=== PATIENT | female | born 1930 | race Caucasian/White ===

== ENCOUNTER → 2019-02-24 | Outpatient (CLI) | payer MEDICARE, OTHER ==
--- NOTE | 2019-02-24 17:28 | Diagnostic Imaging Report ---
INDICATION: Right wrist pain. FINDINGS: Three views. There are no fractures or dislocation. Advanced degenerative changes are noted along the radiocarpal joint. Also along the first metacarpocarpal joint. No evidence of osteonecrosis. There does appear to be mild widening along the scapholunate joint suggesting intercarpal ligament disruption. There are vascular calcifications. IMPRESSION: 1. No acute fracture. 2. Rather advanced degenerative arthritic disease consistent with osteoarthritis. 3. Mild widening of the scapholunate joint. Dictated by: Dictated on workstation # [id number]
== END ==
LOC: RAD 16:36
PROVIDERS: ATTEND Family Medicine
DX: M19.031 Primary osteoarthritis, right wrist (principal)
CPT/HCPCS: 73110

== ENCOUNTER → 2019-03-29 | Outpatient (CLI) | payer MEDICARE ==
--- NOTE | 2019-03-29 17:37 | Diagnostic Imaging Report ---
INDICATION: Pain, falls. COMPARISON: None available. TECHNIQUE: Six radiographs of the bilateral knees dated March 29, 2019. FINDINGS: Right: No acute fracture or dislocation. Mild medial joint space narrowing. Moderate tricompartmental osteophytosis. Chondrocalcinosis of the medial and lateral menisci. No significant joint effusion. Left: No acute fracture or dislocation. No destructive osseous process. Mild medial and lateral joint space narrowing. Moderate tricompartmental osteophytosis. Chondrocalcinosis of the medial and lateral menisci. No joint effusion. IMPRESSION: 1. No acute osseous abnormality with scattered degenerative changes. 2. 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 Alternatively, this could simply relate to osteoarthritis. Dictated by: Dictated on workstation # [id number]
--- NOTE | 2019-03-29 17:45 | Diagnostic Imaging Report ---
INDICATION: Bilateral hip pain. No known trauma. COMPARISON: None available. TECHNIQUE: AP pelvis with AP and frog-leg lateral views of each hip for a total of five views. FINDINGS: Nonuniform joint space narrowing in both hips is greatest superiorly, and degenerative in nature. Small marginal osteophytes are present. 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 No acetabular retroversion or features of osteonecrosis. Degenerative changes are present of the symphysis pubis as well. SI joints are normal in alignment. Assessment of the sacrum and coccyx is limited due to overlying bowel gas and stool. IMPRESSION: Pxdpxxjk-us-[id number] degenerative arthritis of both hips. Dictated by: Dictated on workstation # [id number]
== END ==
LOC: RAD 15:19
PROVIDERS: ATTEND Family Medicine
DX: M11.262 Other chondrocalcinosis, left knee (principal); M11.261 Other chondrocalcinosis, right knee; M25.762 Osteophyte, left knee; M25.761 Osteophyte, right knee; M16.0 Bilateral primary osteoarthritis of hip; M17.0 Bilateral primary osteoarthritis of knee; R29.6 Repeated falls
CPT/HCPCS: 73523

== ENCOUNTER → 2019-04-14 | Outpatient (CLI) | payer MEDICARE ==
[2019-04-14 15:17] LABS: BASOPHILS % (AUTO) 0 % (0-10); EOSINOPHILS % (AUTO) 0 % (0-10); HEMATOCRIT 41 % (35-52); HEMOGLOBIN 13.1 G/DL (11.5-16.0); LYMPHOCYTES # (AUTO) 0.9 X 10^3 (1.0-4.0); LYMPHOCYTES % (AUTO) 10 % (12-44); MEAN CORPUSCULAR HEMOGLOBIN 29 PG (25-34); MEAN CORPUSCULAR HGB CONC 32 G/DL (32-36); MEAN CORPUSCULAR VOLUME 89 FL (80-99); MEAN PLATELET VOLUME 10.5 FL (7.4-10.4); MONOCYTES # (AUTO) 1.4 X 10^3 (0.0-1.0); MONOCYTES % (AUTO) 14 % (0-12); NEUTROPHILS # (AUTO) 7.5 X 10^3 (1.8-7.8); NEUTROPHILS % (AUTO) 76 % (42-75); PLATELET COUNT 276 10^3/uL (130-400); RED CELL DISTRIBUTION WIDTH 15.8 % (10.0-14.5); WHITE BLOOD COUNT 9.9 10^3/uL (4.3-11.0)
--- NOTE | 2019-04-14 16:03 | Diagnostic Imaging Report ---
INDICATION: Fall with right wrist injury with pain. EXAMINATION: AP, oblique and lateral views of the right wrist are obtained. FINDINGS: There is diffuse demineralization. There is mild ulnar-minus variation with chondrocalcinosis involving triangular fibrocartilaginous complex. There is atherosclerotic calcification. There is narrowing of the first carpometacarpal joint with subchondral sclerosis and marginal spurring. No acute fracture or malalignment is identified. IMPRESSION: Degenerative findings in the wrist without acute osseous abnormality detected. Dictated by: Dictated on workstation # [id number]
--- NOTE | 2019-04-14 16:05 | Diagnostic Imaging Report ---
INDICATION: Fall. Wrist and hand pain. COMPARISON: 02/24/2019. FINDINGS: Three radiographic views of the right hand were obtained and show no evidence of acute fracture or dislocation. There are advanced osteoarthritic changes, greatest involving the distal interphalangeal joint spaces. Xnfvuiwi-ji-udfhegjj osteoarthritic changes of the first carpometacarpal joint space are also noted. Otherwise, joint spaces are maintained. Osseous structures are intact. No unexpected radiopaque foreign bodies are seen. IMPRESSION: 1. No radiographic evidence of acute fracture or dislocation of the right hand. 2. Osteoarthritic changes as described above. Dictated by: Dictated on workstation # [id number]
== END ==
LOC: LAB 14:57
PROVIDERS: ATTEND Family Medicine
DX: S69.91XA Unspecified injury of right wrist, hand and finger(s), initial encounter (principal); M19.041 Primary osteoarthritis, right hand; M19.031 Primary osteoarthritis, right wrist; D64.9 Anemia, unspecified; W19.XXXA Unspecified fall, initial encounter
CPT/HCPCS: 36415; 73110; 73130; 85025

== ENCOUNTER 2019-09-22 13:14 | Inpatient (IN) | payer MEDICARE ==
[~2019-09-22] VITALS: Ht 162.6 cm; Wt 58.5 kg
--- NOTE | 2019-09-22 13:55 | NUR ---
PATIENT ACTS LIKE SHE WANT TO VOMIT G JENNIFER STONER NOTIFIED MEDS ORDERED.
[2019-09-22] MEDS ORDERED: RT-ALBUTEROL/IPRATROPIUM 3 ML (DUONEB) VIAL INH ONE (14:00)
[2019-09-22] MEDS ORDERED: ONDANSETRON 4 MG/2 ML (SDV) Z0FRAN IVP ONE (14:00)
[2019-09-22 14:33] LABS: BASOPHILS % (AUTO) 0 % (0-10); EOSINOPHILS # (AUTO) 0.1 10^3/uL (0.0-0.3); EOSINOPHILS % (AUTO) 1 % (0-10); HEMATOCRIT 43 % (35-52); HEMOGLOBIN 14.2 G/DL (11.5-16.0); LYMPHOCYTES # (AUTO) 0.6 X 10^3 (1.0-4.0); LYMPHOCYTES % (AUTO) 5 % (12-44); MEAN CORPUSCULAR HEMOGLOBIN 29 PG (25-34); MEAN CORPUSCULAR HGB CONC 33 G/DL (32-36); MEAN CORPUSCULAR VOLUME 89 FL (80-99); MEAN PLATELET VOLUME 11.2 FL (7.4-10.4); MONOCYTES # (AUTO) 0.6 X 10^3 (0.0-1.0); MONOCYTES % (AUTO) 5 % (0-12); NEUTROPHILS # (AUTO) 11.2 X 10^3 (1.8-7.8); NEUTROPHILS % (AUTO) 90 % (42-75); PLATELET COUNT 177 10^3/uL (130-400); RED CELL DISTRIBUTION WIDTH 15.1 % (10.0-14.5); WHITE BLOOD COUNT 12.5 10^3/uL (4.3-11.0)
[2019-09-22 14:49] LABS: BUN/CREATININE RATIO 35; CARBON DIOXIDE 20 MMOL/L (21-32); CHLORIDE 109 MMOL/L (98-107); CREATININE SERUM 0.86 MG/DL (0.60-1.30); POTASSIUM 3.9 MMOL/L (3.6-5.0); SODIUM 141 MMOL/L (135-145)
[2019-09-22 14:50] LABS: ALANINE AMINOTRANSFERASE 14 U/L (0-55); ALBUMIN 3.6 GM/DL (3.2-4.5); ALKALINE PHOSPHATASE 62 U/L (40-136); BILIRUBIN,TOTAL 0.4 MG/DL (0.1-1.0); CALCIUM 8.8 MG/DL (8.5-10.1); GFR ESTIMATED > 60; GLUCOSE 134 MG/DL (70-105); TOTAL PROTEIN 6.5 GM/DL (6.4-8.2)
[2019-09-22 15:17] LABS: BAND NEUTROPHILS 9 %; LYMPHOCYTES % (MANUAL) 5 %; MONOCYTES % (MANUAL) 3 %; NEUTROPHILS % (MANUAL) 83 %; RBC MORPH NORMAL
[2019-09-22] MEDS ORDERED: NS IV 1000 ML 1,000 ML IV SCH (15:27)
[2019-09-22] MEDS ORDERED: NS IV 500 ML 500 ML IV ONE (15:27)
[2019-09-22] MEDS ORDERED: VANCOMYCIN INJECTION 1,000 MG in NS (IVPB) 250 ML IV ONE (15:30)
[2019-09-22] MEDS ORDERED: PIPERACILLIN SODIUM/TAZOBACTAM 4.5 GM in NS (IVPB) 100 ML IV ONE (15:30)
--- NOTE | 2019-09-22 15:36 | ED Respiratory ---
General Chief Complaint: General Problems/Pain Stated Complaint: NOT FEELING WELL Nursing Triage Note: TO ED PER EMS FROM RETIREMENT WAS CALLEAD FOR ELEVATED B/P , NAUSEA , BACK PAIN, AND LOW SA02 PER EMS SAO2 PER NURSING WAS 89% PLACED ON 02. EMS ARRIVAL. SA02 90 O2 UP TO 3L PER NC. PATIENT DENIES PAIN ON ADMIT PMH OF DEMENTIA. PER EMS. Source: patient, EMS Exam Limitations: other (Dementia) History of Present Illness Date Seen by Provider: Sep 22, 2019 Time Seen by Provider: 15:22 Initial Comments The patient presents to the ER by EMS from the senior care with chief complaint of cough shortness of breath elevated blood pressure and nausea. She denies any pain although staff reported some back pain. Her SaO2 was 89% and she was placed on O2 which she does not use routinely. Breathing treatment was given. She denies any history of COPD or asthma. She denies any wheezing. She has had productive cough but denies fever or chills. She says she does feel weak for the past day or so. She denies currently any nausea and EMS did not give her any Zofran. Allergies and Home Medications Allergies Coded Allergies: No Known Drug Allergies (Unverified , 09/22/19) Patient Home Medication List Home Medication List Reviewed: Yes Review of Systems Review of Systems Constitutional: No chills, No fever; malaise EENTM: No ear discharge, No ear pain Respiratory: cough; No hemoptysis, No orthopnea; phlegm, short of breath; No wheezing Cardiovascular: No chest pain, No palpitations, No vascular heart diseas Gastrointestinal: No abdominal pain, No constipation, No diarrhea Genitourinary: No discharge, No dysuria Musculoskeletal: No back pain, No joint pain Skin: No pruritus, No rash Psychiatric/Neurological: Denies Headache, Denies Numbness All Other Systems Reviewed Negative Unless Noted: Yes Past Odibitk-Zkhspo-Vggqqe Hx Patient Social History Alcohol Use: Denies Use Recreational Drug Use: No Smoking Status: Unknown if Ever Smoked Recent Foreign Travel: No Contact w/Someone Who Travel: No Recent Infectious Disease Expo: No Seasonal Allergies Seasonal Allergies: No Past Medical History Respiratory: No Cardiac: Yes (CHF) Atrial Fibrillation, Hypertension Hypothyroidsim Psychosocial: Yes Physical Exam Vital Signs - First Documented 09/22/19 13:30 Temp 37.1 Pulse 100 Resp 20 B/P (MAP) 143/100 (114) Pulse Ox 96 O2 Delivery Nasal Cannula O2 Flow Rate 2.00 Capillary Refill : Less Than 3 Seconds Height: '" Weight: lbs. oz. kg; 188.00 BMI Method: General Appearance: WD/WN, mild distress Eyes: Bilateral Eye Normal Inspection, Bilateral Eye PERRL, Bilateral Eye EOMI HEENT: PERRL/EOMI, normal ENT inspection, TMs normal, pharynx normal (Oropharynx mucosa is mildly dry) Neck: non-tender, full range of motion, supple, normal inspection Respiratory: chest non-tender, no accessory muscle use, respiratory distress (Mild respiratory rate 20-24 with oxygen sats around 97% on 4 L.), crackles (Bilateral bases) Cardiovascular: normal peripheral pulses, regular rate, rhythm, no JVD, tachycardia Gastrointestinal: normal bowel sounds, non tender, soft Neurologic/Psychiatric: alert, normal mood/affect, other (oriented to person and place but not time or situation) Skin: normal color, warm/dry Focused Exam Lactate Level 09/22/19 14:20: Lactic Acid Level 1.40 Lactic Acid Level Laboratory Tests Test 09/22/19 14:20 Lactic Acid Level 1.40 MMOL/L (0.50-2.00) Progress/Results/Core Measures Suspected Sepsis Recent Fever Within 48 Hours: No Infection Criteria Present: Suspected New Infection New/Unexplained Altered Menta: No Sepsis Screen: No Definite Risk SIRS Temperature: Pulse: 100 Respiratory Rate: 20 Laboratory Tests 09/22/19 14:20: White Blood Count 12.5H Blood Pressure 143 /100 Mean: 114 09/22/19 14:20: Lactic Acid Level 1.40 Laboratory Tests 09/22/19 14:20: Creatinine 0.86, INR Comment 2.9H, Platelet Count 177, Total Bilirubin 0.4 Results/Orders Lab Results Laboratory Tests Test 09/22/19 14:20 09/22/19 15:44 09/22/19 15:59 Range/Units White Blood Count 12.5 H 4.3-11.0 10^3/uL Red Blood Count 4.87 4.35-5.85 10^6/uL Hemoglobin 14.2 11.5-16.0 G/DL Hematocrit 43 35-52 % Mean Corpuscular Volume 89 80-99 FL Mean Corpuscular Hemoglobin 29 25-34 PG Mean Corpuscular Hemoglobin Concent 33 32-36 G/DL Red Cell Distribution Width 15.1 H 10.0-14.5 % Platelet Count 177 130-400 10^3/uL Mean Platelet Volume 11.2 H 7.4-10.4 FL Neutrophils (%) (Auto) 90 H 42-75 % Lymphocytes (%) (Auto) 5 L 12-44 % Monocytes (%) (Auto) 5 0-12 % Eosinophils (%) (Auto) 1 0-10 % Basophils (%) (Auto) 0 0-10 % Neutrophils # (Auto) 11.2 H 1.8-7.8 X 10^3 Lymphocytes # (Auto) 0.6 L 1.0-4.0 X 10^3 Monocytes # (Auto) 0.6 0.0-1.0 X 10^3 Eosinophils # (Auto) 0.1 0.0-0.3 10^3/uL Basophils # (Auto) 0.0 0.0-0.1 10^3/uL Neutrophils % (Manual) 83 % Lymphocytes % (Manual) 5 % Monocytes % (Manual) 3 % Band Neutrophils 9 % Blood Morphology Comment NORMAL Prothrombin Time 31.7 H 12.2-14.7 SEC INR Comment 2.9 H 0.8-1.4 Activated Partial Thromboplast Time 44 H 24-35 SEC Sodium Level 141 135-145 MMOL/L Potassium Level 3.9 3.6-5.0 MMOL/L Chloride Level 109 H 98-107 MMOL/L Carbon Dioxide Level 20 L 21-32 MMOL/L Anion Gap 12 5-14 MMOL/L Blood Urea Nitrogen 30 H 7-18 MG/DL Creatinine 0.86 0.60-1.30 MG/DL Estimat Glomerular Filtration Rate > 60 BUN/Creatinine Ratio 35 Glucose Level 134 H 70-105 MG/DL Lactic Acid Level 1.40 0.50-2.00 MMOL/L Calcium Level 8.8 8.5-10.1 MG/DL Corrected Calcium 9.1 8.5-10.1 MG/DL Total Bilirubin 0.4 0.1-1.0 MG/DL Aspartate Amino Transf (AST/SGOT) 19 5-34 U/L Alanine Aminotransferase (ALT/SGPT) 14 0-55 U/L Alkaline Phosphatase 62 40-136 U/L Total Protein 6.5 6.4-8.2 GM/DL Albumin 3.6 3.2-4.5 GM/DL Blood Gas Puncture Site RIGHT RADIAL Blood Gas Patient Temperature 36.6 Arterial Blood pH 7.39 7.37-7.43 Arterial Blood Partial Pressure CO2 37 35-45 MMHG Arterial Blood Partial Pressure O2 78 L 79-93 MMHG Arterial Blood HCO3 22 L 23-27 MMOL/L Arterial Blood Total CO2 23.4 21.0-31.0 MMOL/L Arterial Blood Oxygen Saturation 96 94-100 % Arterial Blood Base Excess -2.1 -2.5-2.5 MMOL/L Godwin Test POSITIVE Blood Gas Ventilator Setting NO Blood Gas Inspired Oxygen 3 L Urine Color YELLOW Urine Clarity CLEAR Urine pH 6.0 5-9 Urine Specific [place] >=1.030 1.016-1.022 Urine Protein NEGATIVE NEGATIVE Urine Glucose (UA) NEGATIVE NEGATIVE Urine Ketones NEGATIVE NEGATIVE Urine Nitrite POSITIVE NEGATIVE Urine Bilirubin NEGATIVE NEGATIVE Urine Urobilinogen 0.2 < = 1.0 MG/DL Urine Leukocyte Esterase NEGATIVE NEGATIVE Urine RBC (Auto) NEGATIVE NEGATIVE Urine RBC NONE /HPF Urine WBC 5-10 H /HPF Urine Squamous Epithelial Cells 5-10 /HPF Urine Crystals NONE /LPF Urine Bacteria LARGE H /HPF Urine Casts NONE /LPF Urine Mucus NEGATIVE /LPF Urine Culture Indicated CULTURE PENDING Micro Results Microbiology 09/22/19 Influenza Types A,B Antigen (MONALISA) - Final, Complete My Orders Orders - ROSANGELA OCONNELL Chest 1 View, Ap/Pa Only (09/22/19 15:27) Blood Culture (09/22/19 15:27) Sputum Culture (09/22/19 15:27) Urinalysis (09/22/19 15:27) Urine Culture (09/22/19 15:27) Protime With Inr (09/22/19 15:27) Partial Thromboplastin Time (09/22/19 15:27) Ed Iv/Invasive Line Start (09/22/19 15:27) Ed Iv/Invasive Line Start (09/22/19 15:27) Vital Signs Adult Sepsis Patie Q15M (09/22/19 15:27) O2 (09/22/19 15:27) Remove Rings In Anticipation O (09/22/19 15:27) Lactic Acid Analyzer (09/22/19 15:27) Ns Iv 1000 Ml (Sodium Chloride 0.9%) (09/22/19 15:27) Piperacillin Sodium/Tazobactam (Zosyn Vi (09/22/19 15:30) Vancomycin Injection (Vancomycin Injecti (09/22/19 15:30) Ed Iv/Invasive Line Start (09/22/19 15:27) Ns Iv 500 Ml (Sodium Chloride 0.9%) (09/22/19 15:27) Arterial Blood Gas (09/22/19 15:46) Medications Given in ED Current Medications Medications Dose Ordered Sig/Heladio Route Start Time Stop Time Status Last Admin Dose Admin Ondansetron HCl 4 mg ONCE ONCE IVP 09/22/19 14:00 09/22/19 14:01 DC 09/22/19 13:57 4 MG Piperacillin Sod/ Tazobactam Sod 4.5 gm/Sodium Chloride 100 ml @ 200 mls/hr ONCE ONCE IV 09/22/19 15:30 09/22/19 15:59 DC 09/22/19 16:30 200 MLS/HR Sodium Chloride 500 ml @ 0 mls/hr Q0M ONCE IV 09/22/19 15:27 09/22/19 15:31 DC 09/22/19 16:19 500 MLS/HR Vancomycin HCl 1000 mg/Sodium Chloride 250 ml @ 250 mls/hr ONCE ONCE IV 09/22/19 15:30 09/22/19 16:29 DC 09/22/19 16:21 250 MLS/HR Vital Signs/I&O 09/22/19 09/22/19 13:30 16:43 Temp 37.1 Pulse 100 72 Resp 20 18 B/P (MAP) 143/100 (114) 144/79 (100) Pulse Ox 96 95 O2 Delivery Nasal Cannula Nasal Cannula O2 Flow Rate 2.00 3.00 Capillary Refill : Less Than 3 Seconds Blood Pressure Mean: 114 Progress Note : Time: 15:35 Progress Note Influenza is negative. She has hypoxia and a loose cough as well as adventitious lung sounds after a breathing treatment. She does not have any wheezing so we'll get a chest x-ray put her on broad-spectrum antibiotics and she lives in a senior care and obtain sputum and urine cultures. Septic workup. 1 and a 1/2 L would be 20 mL/kg. Diagnostic Imaging Diagonstic Imaging: Xray Plain Films/CT/US/NM/MRI: chest (1v) Comments [facility]. [place], [place] NAME: AMINA MACK [employer] REC#: [id number] PT STATUS: REG ER : 1930 PHYSICIAN: ROSANGELA OCONNELL MD ADMIT DATE: 09/22/19/ER Draft Date of Exam:09/22/19 CHEST 1 VIEW, AP/PA ONLY INDICATION: Hypertension, nausea, and back pain. Low oxygen saturation.. TECHNIQUE: Single-view chest at 3:49 p.m. CORRELATION STUDY: None. FINDINGS: Heart size is enlarged. Borderline vasculature. Slight asymmetrically elevated right diaphragm. There may be minimal atelectasis versus less likely infiltrate at the right lung base. [place] screw over the left humeral head, likely prior rotator cuff surgery. IMPRESSION: 1. Cardiac enlargement with borderline vasculature. 2. Some right lung volume loss, likely atelectasis with possibility of superimposed infiltrate not excluded. Dictated on workstation # [id number] Dict: 09/22/19 1552 Trans: 09/22/19 1602 [id number] [id number] Interpreted by: ALETA CLEMONS DO Electronically signed by: Reviewed: Reviewed by Me Departure Communication (Admissions) Time/Spoke to Admitting Phy: 17:00 Dr Sanchez: Discussed the case and she reviewed labs and visit with patient. She agrees to accept the patient the floor on broad-spectrum antibiotics. Impression Primary Impression: Pneumonia Qualified Codes: J18.1 - Lobar pneumonia, unspecified organism Additional Impressions: Sepsis Qualified Codes: A41.9 - Sepsis, unspecified organism Hypoxia UTI (urinary tract infection) Qualified Codes: N30.00 - Acute cystitis without hematuria Disposition: ADMITTED INPATIENT Condition: Stable Admissions Decision to Admit Reason: Admit from ER (General) Decision to Admit/Date: Sep 22, 2019 Time/Decision to Admit Time: 17:00 Departure-Patient Inst. Referrals: CARLENE ROGERS DO (PCP/Family) Primary Care Physician ROSANGELA OCONNELL Sep 22, 2019 15:36
[2019-09-22 15:43] LABS: INR 2.9 (0.8-1.4); PROTHROMBIN TIME PATIENT 31.7 SEC (12.2-14.7)
[2019-09-22 15:52] LABS: ABG BASE EXCESS -2.1 MMOL/L (-2.5-2.5); ABG OXYGEN SATURATION 96 % (94-100); ABG PCO2 37 MMHG (35-45); ABG PH 7.39 (7.37-7.43); ABG PO2 78 MMHG (79-93); ABG TCO2 23.4 MMOL/L (21.0-31.0)
[2019-09-22 15:53] LABS: ALLENS TEST POSITIVE; INSPIRED O2 3 L; PATIENT TEMP 36.6; VENTILATOR NO
--- NOTE | 2019-09-22 16:02 | Diagnostic Imaging Report ---
INDICATION: Hypertension, nausea, and back pain. Low oxygen saturation.. TECHNIQUE: Single-view chest at 3:49 p.m. CORRELATION STUDY: None. FINDINGS: Heart size is enlarged. Borderline vasculature. Slight asymmetrically elevated right diaphragm. There may be minimal atelectasis versus less likely infiltrate at the right lung base. [place] screw over the left humeral head, likely prior rotator cuff surgery. IMPRESSION: 1. Cardiac enlargement with borderline vasculature. 2. Some right lung volume loss, likely atelectasis with possibility of superimposed infiltrate not excluded. Dictated by: Dictated on workstation # [id number]
[2019-09-22 16:07] LABS: BILIRUBIN,URINE NEGATIVE (NEGATIVE); CLARITY,URINE CLEAR; COLOR,URINE YELLOW; GLUCOSE, URINE (UA) NEGATIVE (NEGATIVE); KETONES,URINE NEGATIVE (NEGATIVE); LEUKOCYTE ESTERASE ,URINE NEGATIVE (NEGATIVE); NITRITE,URINE POSITIVE (NEGATIVE); PROTEIN,URINE NEGATIVE (NEGATIVE)
[2019-09-22 16:14] LABS: BACTERIA,URINE LARGE /HPF
--- NOTE | 2019-09-22 16:42 | NUR ---
PATIENT 02 GOES DOWN TO 89-90 % WHEN SHE TAKES HER O2 OFF.
[2019-09-22 16:43] VITALS: BP 144/79
[2019-09-22 18:47] VITALS: BP 133/69
--- NOTE | 2019-09-22 18:47 | NUR ---
AMINA MACK admitted to room 408-1, with an admitting diagnosis of pneumonia, on 09/22/19 from ED via wheelchair, accompanied by staff. AMINA MACK introduced to surroundings, call light, bed controls, phone, TV, temperature control, lights, meal times, smoking policy, visitor policy, side rail policy, bathrooms and showers. Patient Rights given to patient in the handbook. AMINA MACK verbalizes understanding that [facility] is not responsible for the loss or damage to any personal effects or valuables that are kept in the patients possession during their hospitalization. The following Patient Care Plans were discussed with the patient: Discharge Planning, pain management, dehydration, and medications. AMINA MACK verbalizes understanding of Interdisciplinary Patient Education. Patient and/or family were informed about the Rapid Response Team and its purpose.
[2019-09-22 19:39] VITALS: BP 166/67
[2019-09-22 20:56] VITALS: BP 166/67
[2019-09-22] MEDS ORDERED: RT-ALBUTEROL/IPRATROPIUM 3 ML (DUONEB) VIAL INH PRN (21:15)
[2019-09-22] MEDS ORDERED: ONDANSETRON 4 MG/2 ML (SDV) Z0FRAN IV PRN (22:00)
[2019-09-22] MEDS ORDERED: ACETAMINOPHEN 500 MG TAB (TYLENOL) PO PRN (22:00)
[2019-09-22] MEDS ORDERED: CEFEPIME INJECTION 2,000 MG in WATER (STERILE) FOR INJECTION 20 ML IV SCH (22:06)
[2019-09-22] MEDS ORDERED: PHARMACY TO DOSE IV SCH (22:15)
[2019-09-22] MEDS: 1/2 NS W/KCL 20 MEQ/L 1,000 ML IV SCH (23:15)
[2019-09-22] MEDS: MIRTAZAPINE 15 MG (REMERON) TAB PO SCH (23:20)
[2019-09-22] MEDS: risperiDONE 0.25 MG (RisperDAL) TAB PO SCH (23:20)
[2019-09-22] MEDS: CARVEDILOL 12.5 MG (COREG) TABLET PO SCH (23:21)
[2019-09-22] MEDS: SERTRALINE 50 MG (ZOLOFT) TABLET PO SCH (23:21)
[2019-09-23] VITALS (8 sets, daily range): BP systolic 102–179; BP diastolic 51–84
--- NOTE | 2019-09-23 01:39 | NUR ---
PT STATES SHE IS VERY ANXIOUS AND NEEDS MEDICATION TO HELP HER CALM DOWN. INFORMED DR. GRIGSBY OF PTS CONDITION AND THE NEED FOR A SITTER. TELEPHONE ORDERS RECEIVED FOR ATIVAN PO 0.5MG Q8HRS PRN.
[2019-09-23] MEDS: LORazepam 0.5 MG (ATIVAN) TABLET PO PRN ×2 (01:44→20:09)
[2019-09-23] MEDS: RT-ALBUTEROL/IPRATROPIUM 3 ML (DUONEB) VIAL INH SCH ×4 (02:02→21:53)
[2019-09-23 06:13] LABS: BASOPHILS % (AUTO) 0 % (0-10); EOSINOPHILS % (AUTO) 0 % (0-10); HEMATOCRIT 36 % (35-52); HEMOGLOBIN 11.4 G/DL (11.5-16.0); LYMPHOCYTES # (AUTO) 1.3 X 10^3 (1.0-4.0); LYMPHOCYTES % (AUTO) 10 % (12-44); MEAN CORPUSCULAR HEMOGLOBIN 29 PG (25-34); MEAN CORPUSCULAR HGB CONC 32 G/DL (32-36); MEAN CORPUSCULAR VOLUME 90 FL (80-99); MONOCYTES # (AUTO) 0.7 X 10^3 (0.0-1.0); MONOCYTES % (AUTO) 5 % (0-12); NEUTROPHILS # (AUTO) 11.8 X 10^3 (1.8-7.8); NEUTROPHILS % (AUTO) 85 % (42-75); PLATELET COUNT 136 10^3/uL (130-400); WHITE BLOOD COUNT 13.9 10^3/uL (4.3-11.0)
[2019-09-23 06:32] LABS: INR 3.9 (0.8-1.4); PROTHROMBIN TIME PATIENT 39.7 SEC (12.2-14.7)
[2019-09-23] MEDS: 1/2 NS W/KCL 20 MEQ/L 1,000 ML IV SCH ×2 (06:54→18:35)
[2019-09-23] MEDS: LEVOTHYROXINE 25 MCG (LEVOTHROID) TAB PO SCH ×2 (06:54→06:56)
[2019-09-23 06:57] LABS: ALANINE AMINOTRANSFERASE 14 U/L (0-55); ALKALINE PHOSPHATASE 50 U/L (40-136); BUN/CREATININE RATIO 28; CALCIUM 7.8 MG/DL (8.5-10.1); CARBON DIOXIDE 19 MMOL/L (21-32); CHLORIDE 112 MMOL/L (98-107); CREATININE SERUM 0.74 MG/DL (0.60-1.30); GFR ESTIMATED > 60; GLUCOSE 89 MG/DL (70-105); POTASSIUM 3.6 MMOL/L (3.6-5.0); SODIUM 140 MMOL/L (135-145); TOTAL PROTEIN 5.1 GM/DL (6.4-8.2)
--- NOTE | 2019-09-23 07:35 | Diagnostic Imaging Report ---
INDICATION: Pneumonia. COMPARISON: 09/22/2019 FINDINGS: Single frontal radiographic view of the chest was obtained and demonstrates stable mild cardiomegaly. Pulmonary vasculature is within normal limits. There is a 2.5 cm nodular opacity within the medial right lung base. Patchy airspace opacities are also noted within the left base partially obscuring the left hemidiaphragm. No pneumothorax is seen on either side. Osseous structures are stable. IMPRESSION: 1. Findings concerning for pulmonary nodule within the medial right lung base. Correlation with CT is recommended. 2. Patchy alveolar opacities of the left base suspicious for pneumonia. Follow-up to resolution is advised. Dictated by: Dictated on workstation # [id number]
[2019-09-23] MEDS: CARVEDILOL 12.5 MG (COREG) TABLET PO SCH ×2 (08:16→20:10)
[2019-09-23] MEDS: risperiDONE 0.25 MG (RisperDAL) TAB PO SCH ×3 (08:16→20:09)
--- NOTE | 2019-09-23 08:36 | History & Physical ---
History of Present Illness History of Present Illness Reason for visit/HPI patient is resident of a residential. Received call from nurse that blood pressure is extremely high. Patient is nauseous. Patient's pulse ox went down. Patient transferred to emergency room showing pneumonia. Patient has dementia and unable to give any history Date of Admission Sep 22, 2019 at 17:00 Time Seen by a Provider: 08:32 I consulted on this patient on 09/23/19 08:32 Attending Physician Don Rogers DO Admitting Physician Don Rogers DO Consult Allergies and Home Medications Allergies Coded Allergies: No Known Drug Allergies (Unverified , 09/22/19) Patient Home Medication List Home Medication List Reviewed: No Past [place]-Nxxiyt-Nbzlur Hx Past Med/Social Hx: Reviewed Nursing Past Med/Soc Hx Patient Social History Employed/Student: retired Alcohol Use: Denies Use Recreational Drug Use: No Smoking Status: Unknown if Ever Smoked Recent Foreign Travel: No Contact w/other who traveled: No Recent Infectious Disease Expo: No Seasonal Allergies Seasonal Allergies: No Past Medical History Cardiac: Atrial Fibrillation, Hypertension Neurological: Dementia Gastrointestinal: Chronic Constipation Endocrine: Hypothyroidsim Psychosocial: Bipolar, Depression Review of Systems Constitutional: weakness EENTM: no symptoms reported Respiratory: no symptoms reported Cardiovascular: other (on Coumadin for atrial fibrillation) Gastrointestinal: no symptoms reported Genitourinary: no symptoms reported Physical Exam Vital Signs Vital Signs - First Documented 09/22/19 13:30 Temp 37.1 Pulse 100 Resp 20 B/P (MAP) 143/100 (114) Pulse Ox 96 O2 Delivery Nasal Cannula O2 Flow Rate 2.00 Capillary Refill : Less Than 3 Seconds Height, Weight, BMI Height: '" Weight: lbs. oz. kg; 22.05 BMI Method: General Appearance: WD/WN, Thin Eyes: Bilateral Eye Normal Inspection HEENT: Normal ENT Inspection Neck: Full Range of Motion, Normal Inspection Respiratory: No Accessory Muscle Use, No Respiratory Distress, Decreased Breath Sounds Cardiovascular: Irregularly Irregular Gastrointestinal: Non Tender, Soft Assessment/Plan Assessment and Plan pneumonia. UTI. Hypoxia. Dementia. Hypothyroid. Atrial fibrillation Admission Diagnosis Admission Status: Inpatient Order (span 2 midnights) Reason for Inpatient Admission: pneumonia. Dementia. Hypertension malignant. Clinical Quality Measures DVT/VTE Risk/Contraindication: Risk Factor Score Per Nursin RFS Level Per Nursing on Admit: 3=High Contraindications-Pharm: Other *list below* DON ROGERS DO Sep 23, 2019 08:35
[2019-09-23 08:45] LABS: MAGNESIUM 1.6 MG/DL (1.6-2.4)
[2019-09-23] MEDS ORDERED: LEVO25TA5 PO (08:55)
[2019-09-23] MEDS ORDERED: CARV25TA PO (08:55)
[2019-09-23] MEDS ORDERED: LACT20SO2 PO (08:55)
[2019-09-23] MEDS ORDERED: POLY17PO6 PO (08:55)
[2019-09-23] MEDS ORDERED: MELO15TA39 PO (08:55)
[2019-09-23] MEDS ORDERED: MIRT7.5T8 PO (08:55)
[2019-09-23] MEDS ORDERED: DOCU-143 PO (08:55)
[2019-09-23] MEDS ORDERED: BISA10SU58 RC (08:55)
[2019-09-23] MEDS ORDERED: LORA10TA7 PO (08:55)
[2019-09-23] MEDS ORDERED: LISI-556 PO (08:55)
[2019-09-23] MEDS ORDERED: MAGN400O7 PO (08:55)
[2019-09-23] MEDS ORDERED: WARF-48 PO (08:56)
[2019-09-23] MEDS ORDERED: SERT50TA9 PO (08:56)
[2019-09-23] MEDS ORDERED: RISP0.5T3 PO (08:56)
[2019-09-23] MEDS ORDERED: TRM50T PO (08:56)
[2019-09-23] MEDS ORDERED: DICL100G31 TOP (08:56)
[2019-09-23] MEDS ORDERED: ACET325T38 PO (08:57)
--- NOTE | 2019-09-23 08:58 | NUR ---
UPDATED MED REC WITH ORDER SUMMARY REPORT FROM [facility] [place], [facility].
[2019-09-23] MEDS ORDERED: risperiDONE 0.25 MG (RisperDAL) TAB PO SCH (09:00)
[2019-09-23] MEDS ORDERED: CARVEDILOL 12.5 MG (COREG) TABLET PO SCH (09:00)
--- NOTE | 2019-09-23 09:12 | NUR ---
VANCOMYCIN DOSING SCR 0.74 (USED 1.0); CRCL ~ 33; VANC 1 GM GIVEN AT 1621 YESTERDAY; VANC 15 MG/KG X 58 KG ~ 1 GM Q24H CHECK TROUGH LEVEL 09/24 1500 BEFORE THE 3RD DOSE HOLD DOSE AND CONTACT PHARMACY IF LEVEL IS GREATER THAN 20
[2019-09-23] MEDS ORDERED: BISACODYL 10 MG SUPP (DULCOLAX) RC PRN (09:15)
[2019-09-23] MEDS ORDERED: MILK OF MAGNESIA 400 MG/5 ML 30 ML UDC PO PRN (09:15)
[2019-09-23] MEDS ORDERED: NON-FORMULARY MEDICATION 1 EA EA (Risperidone 0.5 MG) PO SCH (13:00)
--- NOTE | 2019-09-23 13:53 | NUR ---
CM/SS spoke with the patient to assess for needs upon discharge. Plan: If the facility is able to take the patient back she will return to [facility]. The patient has a POA Alley who lives in [place]. Summary: The patient was lying in bed upon arrival. The patient was willing to talk but was pleasantly confused. The patient stated that she is feeling better today and she could confirm that she lives at [facility]. She did appear to be confused of where she was at and she was unsure if her daughter knew she was in the hospital. CM/SS asked permission to call POA if needed. Patient verbalized that SS could. CM[facility]SS [facility] see if [facility] POA was notified and they reported that she had been notified. Will continue to follow and assess for any needs and plan to inform agency of discharge when able.
[2019-09-23] MEDS: VANCOMYCIN 1 GM/NS 250 ML IVPB IV SCH ×2 (16:02)
[2019-09-23] MEDS ORDERED: warFARin 5 MG (COUMADIN) TAB PO SCH (18:00)
[2019-09-23] MEDS: warFARin 5 MG (COUMADIN) TAB PO SCH (18:11)
[2019-09-23] MEDS: CEFEPIME INJECTION 2,000 MG in WATER (STERILE) FOR INJECTION 20 ML IV SCH (20:09)
[2019-09-23] MEDS: ACETAMINOPHEN 325 MG TABLET PO PRN (20:09)
[2019-09-23] MEDS: LACTULOSE SYRUP 10GM/15ML (ENULOSE) 30ML UDC PO SCH (20:10)
[2019-09-23] MEDS: SERTRALINE 50 MG (ZOLOFT) TABLET PO SCH (20:10)
[2019-09-23] MEDS: MIRTAZAPINE 15 MG (REMERON) TAB PO SCH (20:10)
[2019-09-23] MEDS ORDERED: NON-FORMULARY MEDICATION 1 EA EA (Mirtazapine 7.5 MG) PO SCH (21:00)
[2019-09-23] MEDS ORDERED: NON-FORMULARY MEDICATION 1 EA EA (Carvedilol 25 MG) PO SCH (21:00)
[2019-09-23] MEDS ORDERED: SERTRALINE 50 MG (ZOLOFT) TABLET PO SCH (21:00)
[2019-09-23] MEDS ORDERED: MIRTAZAPINE 15 MG (REMERON) TAB PO SCH (21:00)
[2019-09-24] MEDS: RT-ALBUTEROL/IPRATROPIUM 3 ML (DUONEB) VIAL INH SCH ×2 (01:46→16:09)
[2019-09-24 03:32] VITALS: BP 147/84
[2019-09-24] MEDS: LEVOTHYROXINE 25 MCG (LEVOTHROID) TAB PO SCH (03:56)
[2019-09-24] MEDS: LORazepam 0.5 MG (ATIVAN) TABLET PO PRN (03:56)
[2019-09-24 05:17] LABS: HEMOGLOBIN 11.5 G/DL (11.5-16.0); MEAN PLATELET VOLUME 11.3 FL (7.4-10.4); WHITE BLOOD COUNT 9.1 10^3/uL (4.3-11.0)
[2019-09-24 05:31] LABS: INR 3.1 (0.8-1.4); PROTHROMBIN TIME PATIENT 33.5 SEC (12.2-14.7)
[2019-09-24 05:39] LABS: ALANINE AMINOTRANSFERASE 23 U/L (0-55); ALKALINE PHOSPHATASE 51 U/L (40-136); BILIRUBIN,TOTAL 0.8 MG/DL (0.1-1.0); BUN/CREATININE RATIO 21; CALCIUM 8.2 MG/DL (8.5-10.1); CARBON DIOXIDE 20 MMOL/L (21-32); CHLORIDE 115 MMOL/L (98-107); CREATININE SERUM 0.75 MG/DL (0.60-1.30); GFR ESTIMATED > 60; GLUCOSE 104 MG/DL (70-105); POTASSIUM 3.7 MMOL/L (3.6-5.0); SODIUM 144 MMOL/L (135-145); TOTAL PROTEIN 5.6 GM/DL (6.4-8.2)
[2019-09-24 08:00] VITALS: BP 180/80
[2019-09-24] MEDS ORDERED: PROMETHAZINE/ CODEINE SYRUP 5 ML UDC PO PRN (08:00)
[2019-09-24] MEDS: risperiDONE 0.25 MG (RisperDAL) TAB PO SCH ×3 (08:25→21:27)
[2019-09-24] MEDS: CARVEDILOL 12.5 MG (COREG) TABLET PO SCH ×2 (08:26→21:27)
[2019-09-24] MEDS: LORATADINE (CLARITIN) 10 MG TAB PO SCH (08:26)
[2019-09-24] MEDS: POLYETHYLENE GLYCOL 17 GM (MIRALAX) PACK PO SCH (08:27)
[2019-09-24] MEDS: LACTULOSE SYRUP 10GM/15ML (ENULOSE) 30ML UDC PO SCH ×2 (08:27→20:57)
[2019-09-24] MEDS: DOCUSATE SODIUM 100 MG (COLACE) CAP PO SCH (08:27)
[2019-09-24] MEDS: lisINopril 5 MG (PRINIVIL) TABLET PO SCH (08:29)
--- NOTE | 2019-09-24 08:30 | Progress Note ---
Subjective Time Seen by a Provider: 08:27 Subjective/Events-last exam Patient clinically doing better today. UA culture shows Escherichia coli greater than 100,000. UTI. Chest x-ray yesterday shows pulmonary nodules and needs CAT scan for evaluation Focused Exam Lactate Level 09/22/19 14:20: Lactic Acid Level 1.40 Objective Exam Vital Signs Date Time Temp Pulse Resp B/P (MAP) Pulse Ox O2 Delivery O2 Flow Rate FiO2 09/24/19 03:32 36.1 77 20 147/84 (105) 96 Nasal Cannula 2.00 09/24/19 01:46 96 Nasal Cannula 2.00 09/23/19 23:05 37.2 98 20 168/84 (112) 97 Nasal Cannula 2.00 09/23/19 21:53 94 Nasal Cannula 2.00 09/23/19 20:15 Nasal Cannula 2.00 09/23/19 19:36 37.0 88 20 179/80 (113) 98 Nasal Cannula 2.00 09/23/19 15:24 36.5 79 20 150/78 (102) 96 Nasal Cannula 2.00 09/23/19 13:58 97 Nasal Cannula 2.00 09/23/19 11:10 36.6 72 18 120/59 (79) 95 Nasal Cannula 2.00 09/23/19 10:51 36.8 75 94 28 I & O 09/24/19 07:00 Intake Total 920 ml Output Total 500 ml Balance 420 ml Capillary Refill : Less Than 3 SecondsLess Than 3 Seconds General Appearance: No Apparent Distress, Thin HEENT: Normal ENT Inspection Neck: Full Range of Motion, Normal Inspection Respiratory: No Accessory Muscle Use, No Respiratory Distress, Decreased Breath Sounds Cardiovascular: Regular Rate, Rhythm, No Murmur Gastrointestinal: non tender, soft Results Lab Laboratory Tests 09/24/19 04:45 Laboratory Tests 09/24/19 04:45: White Blood Count 9.1, Red Blood Count 4.01L, Hemoglobin 11.5, Hematocrit 36, Mean Corpuscular Volume 90, Mean Corpuscular Hemoglobin 29, Mean Corpuscular Hemoglobin Concent 32, Red Cell Distribution Width 15.0H, Platelet Count 128L, Mean Platelet Volume 11.3H, Prothrombin Time 33.5H, INR Comment 3.1H, Sodium Level 144, Potassium Level 3.7, Chloride Level 115H, Carbon Dioxide Level 20L, Anion Gap 9, Blood Urea Nitrogen 16, Creatinine 0.75, Estimat Glomerular Filtration Rate > 60, BUN/Creatinine Ratio 21, Glucose Level 104, Calcium Level 8.2L, Corrected Calcium 9.0, Total Bilirubin 0.8, Aspartate Amino Transf (A ST/SGOT) 28, Alanine Aminotransferase (ALT/SGPT) 23, Alkaline Phosphatase 51, Total Protein 5.6L, Albumin 3.0L Microbiology 09/22/19 Blood Culture - Preliminary, Resulted No growth 09/22/19 Urine Culture - Preliminary, Resulted Probable E.coli Probable Enterococcus Species 09/22/19 Influenza Types A,B Antigen (MONALISA) - Final, Complete Assessment/Plan Assessment/Plan Assess & Plan/Chief Complaint Pneumonia. UTI. Hypoxia. Dementia. Pulmonary nodule. Cough Clinical Quality Measures Admission Status Admission Dx pneumonia. UTI. Hypoxia. Dementia. Hypothyroid. Atrial fibrillation DVT/VTE Risk/Contraindication: Risk Factor Score Per Nursin RFS Level Per Nursing on Admit: 3=High Contraindications-Pharm: Other *list below* CARLENE ROGERS DO Sep 24, 2019 08:30
--- NOTE | 2019-09-24 08:33 | Diagnostic Imaging Report ---
INDICATION: Lower respiratory infection. Portable chest 3:53 AM FINDINGS: There is cardiomegaly with vascular congestion. There may be some patchy consolidation at the right medial lung base. IMPRESSION: Mild pulmonary venous hypertension. Questionable patchy consolidation right medial lung base. Dictated by: Dictated on workstation # [id number]
[2019-09-24] MEDS ORDERED: SERTRALINE 50 MG (ZOLOFT) TABLET PO SCH (09:00)
[2019-09-24] MEDS ORDERED: LEVOTHYROXINE 25 MCG (LEVOTHROID) TAB PO SCH (09:00)
[2019-09-24] MEDS: 1/2 NS W/KCL 20 MEQ/L 1,000 ML IV SCH (11:48)
[2019-09-24 12:00] VITALS: BP 183/90
--- NOTE | 2019-09-24 13:24 | NUR ---
"RD ASSESSMENT PMHx: afib; HTN; chronic constipation; dementia PT INTERACTION: Pt was awake and pleasant during nutrition assessment. Note pt has hx of dementia and AMS, per chart review. Pt states current appetite is okay and has been for some time. Note avg PO intake of 56% x1d, per chart review. Pt states no recent issues with n/v/c/d at this time, nor having any difficulty chewing/swallowing food. Note last BM was 1/3 and pt currently on bowel regimen of colace BID; and miralax BID, per chart review. Could not get details on recent wt hx, per patient. Note unable to determine recent wt hx, per chart review. ABNORMAL NUTRITION-RELATED LAB VALUES LOW: Ca 8.2; Pro 5.6; alb 3.0 HIGH: Cl 115 Est. kcal needs: 3867-8427 kcal | 25-30 kcal/kg Est. Pro needs: 50-61 g Pro | 0.8-1.0 g Pro/kg PES STATEMENT: Inadequate oral intake (NI-2.1) related to loss of appetite as evidenced by pt interview | avg PO intake 56% x1d INTERVENTION: Continue with current diet order of Regular diet. Add Ensure Enlive to meals BID for increased kcal intake. Provides 350 kcal and 13 g Pro per serving. Will continue to follow and reassess as pt needs and status change. MONITOR/EVALUATE: PO Intake; Plan of Care; Hydration Status; Weight Status; Lab Values Jordyn James, MS, RD, LD"
--- NOTE | 2019-09-24 14:14 | NUR ---
CM/SS talked with the patients nurse to check on discharge over the weekend. The nurse was unsure but didn't think it would happen yet. The patient has a sitter in her room with her to calm her down with her dementia and anxiety. CM/SS called the patients LUCAJo Ann Hager ([phone]) to touch base and assess needs. This CM/SS wanted POA to have social work number if there were any needs. The POA verbalized being thankful for [facility] and the staff for keeping her updated and having someone sit with her mother. Will continue to follow.
[2019-09-24] MEDS ORDERED: HOLD METFORMIN - RECEIVED CONTRAST 20 ML VIAL IV SCH (14:45)
[2019-09-24] MEDS ORDERED: CATHETER FLUSH 10 ML SYR IV PRN (14:45)
[2019-09-24] MEDS ORDERED: NS 100 ML (IVPB) BAG IV ONE (14:45)
[2019-09-24] MEDS ORDERED: IOHEXOL 350 MG/ML 100 ML (OMNIPAQUE 350) VIAL IV ONE (14:45)
[2019-09-24] MEDS ORDERED: TROUGH ORDER-PHARMACY XX NR (15:00)
[2019-09-24 15:23] VITALS: BP 167/89
--- NOTE | 2019-09-24 17:04 | NUR ---
VANCOMYCIN TROUGH = 5.8 AFTER 2 DOSES CONTINUE CURRENT REGIMEN, REDO TROUGH 09/25 @1500
[2019-09-24] MEDS: VANCOMYCIN 1 GM/NS 250 ML IVPB IV SCH ×2 (17:49)
--- NOTE | 2019-09-24 18:06 | Diagnostic Imaging Report ---
PROCEDURE: CT chest with contrast only. TECHNIQUE: Multiple contiguous axial images were obtained through the chest after administration of intravenous contrast. Auto Exposure Controls were utilized during the CT exam to meet ALARA standards for radiation dose reduction. DATE: September 24, 2019. COMPARISON: Chest radiograph September 24, 2019. INDICATION: 89-year-old female, shortness of breath. History of pneumonia. FINDINGS: There is notable respiratory motion artifact. There is no identified pulmonary nodule. There is no lung mass. There is multifocal patchy airspace consolidation in the right upper lobe, right middle lobe and right lower lobe. There are predominantly linear opacities in the left lower lobe likely predominantly reflecting atelectasis. There is a trace left pleural effusion. There is a trace to small right pleural effusion. There is no pneumothorax. There is no identified central pulmonary embolus. The main pulmonary artery is normal in caliber. The heart is enlarged. There is no pericardial effusion. There are atherosclerotic calcifications. There is no identified abnormally enlarged mediastinal, hilar or axillary lymph node which meets CT size criteria for adenopathy. There is an area of left renal cortical scarring. There is significantly motion limited evaluation of the level of the upper abdomen. There is an anchor in the left humeral head. There is glenohumeral arthritis. There is a compression deformity of L1 with roughly 50% height loss and retropulsion of the posterior superior aspect of the L1 vertebral body beyond the expected posterior vertebral body margin by 4.5 mm. There is superior endplate concavity of T11 which may relate to a prior compression deformity or Schmorl's node. There is no residual fracture line. These are technically age indeterminate without comparison imaging. IMPRESSION: CT chest. 1. Multifocal airspace consolidation predominantly in the right lung which may reflect multifocal pneumonia. Other alveolar consolidative processes are also considered. 2. Predominantly linear opacities in the left lower lobe most likely reflecting atelectasis. 3. Trace left and trace to small right pleural effusions. 4. No identified central pulmonary embolus. Cardiomegaly. 5. Age indeterminate, although most likely chronic, compression deformities of L1 and T11. 6. Significant motion limitations of the study. Dictated by: Dictated on workstation # [id number]
[2019-09-24] MEDS: warFARin 5 MG (COUMADIN) TAB PO SCH (18:13)
[2019-09-24 19:22] VITALS: BP 167/93
[2019-09-24] MEDS: SERTRALINE 50 MG (ZOLOFT) TABLET PO SCH (21:27)
[2019-09-24] MEDS: MIRTAZAPINE 15 MG (REMERON) TAB PO SCH (21:29)
[2019-09-24] MEDS: ACETAMINOPHEN 325 MG TABLET PO PRN (22:10)
[2019-09-24] MEDS: CEFEPIME INJECTION 2,000 MG in WATER (STERILE) FOR INJECTION 20 ML IV SCH (22:11)
[2019-09-24 23:13] VITALS: BP 143/72
[2019-09-25] MEDS: LORazepam 0.5 MG (ATIVAN) TABLET PO PRN ×2 (00:22→21:30)
[2019-09-25] MEDS: RT-ALBUTEROL/IPRATROPIUM 3 ML (DUONEB) VIAL INH SCH ×3 (02:50→14:43)
[2019-09-25 04:15] VITALS: BP 157/82
[2019-09-25 05:47] LABS: MEAN PLATELET VOLUME 11.3 FL (7.4-10.4); RED CELL DISTRIBUTION WIDTH 14.9 % (10.0-14.5); WHITE BLOOD COUNT 8.8 10^3/uL (4.3-11.0)
[2019-09-25 06:07] LABS: ALANINE AMINOTRANSFERASE 17 U/L (0-55); ALBUMIN 3.1 GM/DL (3.2-4.5); ALKALINE PHOSPHATASE 54 U/L (40-136); BILIRUBIN,TOTAL 1.2 MG/DL (0.1-1.0); BUN/CREATININE RATIO 14; CALCIUM 8.5 MG/DL (8.5-10.1); CARBON DIOXIDE 21 MMOL/L (21-32); CHLORIDE 114 MMOL/L (98-107); CREATININE SERUM 0.64 MG/DL (0.60-1.30); GFR ESTIMATED > 60; GLUCOSE 79 MG/DL (70-105); POTASSIUM 3.3 MMOL/L (3.6-5.0); SODIUM 144 MMOL/L (135-145); TOTAL PROTEIN 5.7 GM/DL (6.4-8.2)
[2019-09-25] MEDS: 1/2 NS W/KCL 20 MEQ/L 1,000 ML IV SCH ×2 (06:09→21:38)
[2019-09-25 07:52] VITALS: BP 161/75
[2019-09-25] MEDS: lisINopril 5 MG (PRINIVIL) TABLET PO SCH (09:09)
[2019-09-25] MEDS: DOCUSATE SODIUM 100 MG (COLACE) CAP PO SCH (09:09)
[2019-09-25] MEDS: LEVOTHYROXINE 25 MCG (LEVOTHROID) TAB PO SCH (09:09)
[2019-09-25] MEDS: risperiDONE 0.25 MG (RisperDAL) TAB PO SCH ×3 (09:09→21:30)
[2019-09-25] MEDS: LORATADINE (CLARITIN) 10 MG TAB PO SCH (09:09)
[2019-09-25] MEDS: CARVEDILOL 12.5 MG (COREG) TABLET PO SCH ×2 (09:09→21:30)
[2019-09-25] MEDS: POLYETHYLENE GLYCOL 17 GM (MIRALAX) PACK PO SCH (09:10)
[2019-09-25] MEDS: LACTULOSE SYRUP 10GM/15ML (ENULOSE) 30ML UDC PO SCH ×2 (09:10→21:30)
--- NOTE | 2019-09-25 11:37 | Progress Note - Hospitalist ---
Subjective HPI/CC On Admission Date Seen by Provider: Sep 25, 2019 Time Seen by Provider: 11:28 Subjective/Events-last exam Pt is sleeping during exam. Received ativan last night. Focused Exam Lactate Level 09/22/19 14:20: Lactic Acid Level 1.40 Objective Exam Vital Signs Vital Signs Date Time Temp Pulse Resp B/P (MAP) Pulse Ox O2 Delivery O2 Flow Rate FiO2 09/25/19 08:00 93 Nasal Cannula 2.00 09/25/19 07:52 36.8 85 20 161/75 (103) 09/23/19 10:51 28 Capillary Refill : Less Than 3 SecondsLess Than 3 Seconds General Appearance: No Apparent Distress, Chronically ill Respiratory: Lungs Clear, No Respiratory Distress Cardiovascular: Regular Rate, Rhythm, No Murmur Neurologic/Psychiatric: Alert, Oriented x3 Results/Procedures Lab Laboratory Tests 09/25/19 04:55 Patient resulted labs reviewed. Assessment/Plan Assessment and Plan Assess & Plan/Chief Complaint pneumonia Continue Abx, MRSA screen negative so will DC vanc UTI- e coli and enterococcus- Change Cefepime to Merrem for ESBL Hypoxia- stable on 2lpllm Dementia- was confused yesterday and needed sitter, sleeping comfortably now Hypothyroid on home supplement Atrial fibrillation- rate controlled Clinical Quality Measures DVT/VTE Risk/Contraindication: Risk Factor Score Per Nursin RFS Level Per Nursing on Admit: 3=High Contraindications-Pharm: Other *list below* YANNI GRIGSBY MD Sep 25, 2019 11:37
[2019-09-25 11:43] VITALS: BP 140/71
[2019-09-25] MEDS ORDERED: MEROPENEM 1,000 MG in WATER (STERILE) FOR INJECTION 20 ML IV SCH (11:45)
--- NOTE | 2019-09-25 12:00 | NUR ---
PATIENT DROWSY, REFUSED LUNCH, SITTER REMOVED, PATIENT HAS NOT TRIED TO GET UP BY SELF, BED ALARM SET, TELLE SITTER PUT IN ROOM.
[2019-09-25] MEDS: MEROPENEM 500 MG/SWFI 10 ML IV PUSH IV SCH ×4 (13:12→21:30)
--- NOTE | 2019-09-25 13:15 | Physical Therapy Progress Note ---
Therapy Progress Note Performed chart review and attempted therapy evaluation. Unable to arouse patient. She was given sleeping meds overnight and has apparently not been awake yet today. Will attemp eval at later date. LAWRENCE WOODS PT Sep 25, 2019 13:15
--- NOTE | 2019-09-25 13:55 | NUR ---
INR 3.1, INSTRUCTED BY DR GRIGSBY TO GIVE EVENING DOSE OF COUMADIN TODAY AND ORDER INR IN AM
[2019-09-25] MEDS ORDERED: TROUGH ORDER-PHARMACY XX NR (15:00)
[2019-09-25 15:21] VITALS: BP 146/72
[2019-09-25] MEDS: warFARin 5 MG (COUMADIN) TAB PO SCH (17:19)
--- NOTE | 2019-09-25 18:00 | NUR ---
AWAKE, ORIENTED TIMES 2, ATE 100 PERCENT DINER, WALKED TO BATHROOM TO VOID, COOPERATIVE, O2 ON PER NC AT 2 LITERS, BED ALARM ON.
[2019-09-25 19:09] VITALS: BP 149/82
[2019-09-25] MEDS: MIRTAZAPINE 15 MG (REMERON) TAB PO SCH (21:31)
[2019-09-25] MEDS: SERTRALINE 50 MG (ZOLOFT) TABLET PO SCH (21:31)
--- NOTE | 2019-09-25 23:00 | NUR ---
Received report from Esther Larson RN. Agreed with previous assessment. Will assume patient care.
[2019-09-25 23:55] VITALS: BP 162/99
[2019-09-26 03:20] VITALS: BP 151/84
[2019-09-26] MEDS: RT-ALBUTEROL/IPRATROPIUM 3 ML (DUONEB) VIAL INH SCH ×5 (03:44→18:04)
[2019-09-26] MEDS: MEROPENEM 500 MG/SWFI 10 ML IV PUSH IV SCH ×2 (04:34)
[2019-09-26 05:24] LABS: INR 1.3 (0.8-1.4)
[2019-09-26] MEDS: LEVOTHYROXINE 25 MCG (LEVOTHROID) TAB PO SCH (06:25)
[2019-09-26 08:00] VITALS: BP 168/97
[2019-09-26] MEDS: lisINopril 5 MG (PRINIVIL) TABLET PO SCH (08:35)
[2019-09-26] MEDS: DOCUSATE SODIUM 100 MG (COLACE) CAP PO SCH (08:35)
[2019-09-26] MEDS: LORATADINE (CLARITIN) 10 MG TAB PO SCH (08:35)
[2019-09-26] MEDS: CARVEDILOL 12.5 MG (COREG) TABLET PO SCH ×2 (08:35→21:55)
[2019-09-26] MEDS: POLYETHYLENE GLYCOL 17 GM (MIRALAX) PACK PO SCH (08:38)
[2019-09-26] MEDS: LACTULOSE SYRUP 10GM/15ML (ENULOSE) 30ML UDC PO SCH ×2 (08:38→21:55)
[2019-09-26] MEDS: risperiDONE 0.25 MG (RisperDAL) TAB PO SCH ×3 (09:03→21:55)
[2019-09-26] MEDS ORDERED: LEVOFLOXACIN 750 MG TAB (LEVAQUIN) PO NR (11:11)
--- NOTE | 2019-09-26 11:37 | Progress Note - Hospitalist ---
Subjective HPI/CC On Admission Date Seen by Provider: Sep 26, 2019 Time Seen by Provider: 11:32 Subjective/Events-last exam Pt remains somnolent. Discussed with RN and lost IV. Had been up and confused but resting currently. Objective Exam Vital Signs Vital Signs Date Time Temp Pulse Resp B/P (MAP) Pulse Ox O2 Delivery O2 Flow Rate FiO2 09/26/19 08:00 36.4 89 24 168/97 (120) 96 Nasal Cannula 2.00 09/23/19 10:51 28 Capillary Refill : Less Than 3 SecondsLess Than 3 Seconds General Appearance: No Apparent Distress, Chronically ill Respiratory: Lungs Clear, No Respiratory Distress Cardiovascular: Regular Rate, Rhythm, No Murmur Results/Procedures Lab Patient resulted labs reviewed. Assessment/Plan Assessment and Plan Assess & Plan/Chief Complaint pneumonia- On Merrem, will switch to Levaquin as should cover urine and PNA UTI- e coli and enterococcus- Switch to Levaquin as she lost her IV and will be in preparation for DC tomorrow Hypoxia- stable on 2lpm Dementia- intermittent confusion, likely worsened by being in hospital, sleeping comfortably now Hypothyroid on home supplement Atrial fibrillation- rate controlled Clinical Quality Measures DVT/VTE Risk/Contraindication: Risk Factor Score Per Nursin RFS Level Per Nursing on Admit: 3=High Contraindications-Pharm: Other *list below* YANNI GRIGSBY MD Sep 26, 2019 11:37
[2019-09-26 12:00] VITALS: BP 171/77
[2019-09-26 15:40] VITALS: BP 155/73
[2019-09-26] MEDS: warFARin 5 MG (COUMADIN) TAB PO SCH (17:54)
[2019-09-26] MEDS: LORazepam 0.5 MG (ATIVAN) TABLET PO PRN (18:48)
[2019-09-26 19:57] VITALS: BP 163/90
[2019-09-26] MEDS: SERTRALINE 50 MG (ZOLOFT) TABLET PO SCH (21:54)
[2019-09-26] MEDS: MIRTAZAPINE 15 MG (REMERON) TAB PO SCH (21:54)
[2019-09-26 23:45] VITALS: BP 161/83
[2019-09-27] MEDS: RT-ALBUTEROL/IPRATROPIUM 3 ML (DUONEB) VIAL INH SCH ×4 (03:04→21:08)
[2019-09-27 03:58] VITALS: BP 171/95
[2019-09-27] MEDS: LEVOTHYROXINE 25 MCG (LEVOTHROID) TAB PO SCH (06:27)
[2019-09-27 08:00] VITALS: BP 147/69
--- NOTE | 2019-09-27 08:15 | Progress Note ---
Subjective Time Seen by a Provider: 08:12 Subjective/Events-last exam Pneumonia. Hypoxia. UTI. Dementia. Atrial fibrillation. Patient needing by herself this morning. Patient has confusion. INR yesterday 1.3. Patient has hypertension Objective Exam Vital Signs Date Time Temp Pulse Resp B/P (MAP) Pulse Ox O2 Delivery O2 Flow Rate FiO2 09/27/19 03:58 36.8 97 22 171/95 (120) 97 Nasal Cannula 2.00 09/27/19 03:04 97 Nasal Cannula 2.00 09/26/19 23:45 36.6 90 8 161/83 (109) 94 Nasal Cannula 2.00 09/26/19 20:10 94 Nasal Cannula 2.00 09/26/19 19:57 36.0 92 18 163/90 (114) 94 Nasal Cannula 2.00 09/26/19 18:05 97 Nasal Cannula 2.00 09/26/19 15:45 97 Nasal Cannula 2.00 09/26/19 15:40 36.9 93 22 155/73 (100) 97 Nasal Cannula 2.00 09/26/19 12:00 36.5 86 22 171/77 (108) 96 Nasal Cannula 2.00 I & O 09/27/19 07:00 Intake Total 1510 ml Output Total 2100 ml Balance -590 ml Capillary Refill : Less Than 3 SecondsLess Than 3 Seconds General Appearance: No Apparent Distress, Thin HEENT: Normal ENT Inspection Neck: Full Range of Motion, Normal Inspection Respiratory: No Accessory Muscle Use, No Respiratory Distress, Decreased Breath Sounds Cardiovascular: Irregularly Irregular Gastrointestinal: non tender, soft Results Lab Microbiology 09/23/19 MRSA Screen - Final, Complete MRSA not isolated 09/22/19 Blood Culture - Preliminary, Resulted No growth 09/22/19 Urine Culture - Final, Complete Escherichia coli Enterococcus faecalis See Comments Assessment/Plan Assessment/Plan Assess & Plan/Chief Complaint Pneumonia. UTI. Hypoxia. Dementia. Pulmonary nodule. Cough. . 09/27/19. Pneumonia. UTI. Hypoxia. Dementia. Pulmonary nodule. Cough. Hypertension Clinical Quality Measures Admission Status Admission Dx pneumonia. UTI. Hypoxia. Dementia. Hypothyroid. Atrial fibrillation DVT/VTE Risk/Contraindication: Risk Factor Score Per Nursin RFS Level Per Nursing on Admit: 3=High Contraindications-Pharm: Other *list below* CARLENE ROGERS DO Sep 27, 2019 08:15
--- NOTE | 2019-09-27 08:53 | NUR ---
Pt states she does not know why she is in the hospital or what to expect, states she is trusting God to guide and help her. The pt is Jewish and shared that her prayers have been for help and peace. She welcomed me to pray with her.
[2019-09-27 09:00] LABS: INR 1.5 (0.8-1.4); PROTHROMBIN TIME PATIENT 19.2 SEC (12.2-14.7)
[2019-09-27] MEDS: CARVEDILOL 12.5 MG (COREG) TABLET PO SCH ×2 (09:22→20:46)
[2019-09-27] MEDS: DOCUSATE SODIUM 100 MG (COLACE) CAP PO SCH (09:22)
[2019-09-27] MEDS: LACTULOSE SYRUP 10GM/15ML (ENULOSE) 30ML UDC PO SCH ×2 (09:22→20:47)
[2019-09-27] MEDS: lisINopril 10 MG (PRINIVIL) TABLET PO SCH (09:22)
[2019-09-27] MEDS: LORATADINE (CLARITIN) 10 MG TAB PO SCH (09:22)
[2019-09-27] MEDS: risperiDONE 0.25 MG (RisperDAL) TAB PO SCH ×3 (09:22→21:53)
--- NOTE | 2019-09-27 10:03 | Physical Therapy Evaluation ---
PT Evaluation-General Medical Diagnosis Admission Date Sep 22, 2019 at 17:00 Medical Diagnosis: pneumonia Onset Date: Sep 22, 2019 Therapy Diagnosis Therapy Diagnosis: debility Precautions Precautions/Isolations: Contact Isolation, Fall Prevention Weight Bear Status Right Lower Extremity: Right Weight Bearing/Tolerated Left Lower Extremity: Left Weight Bearing/Tolerated Referral Physician: Daniel Reason for Referral: Evaluation/Treatment Medical History Pertinent Medical History: Atrial Fib, Dementia, HTN Current History ER with pneumonia Reviewed History: Yes Social History Home: Correction Prior Prior Level of Function SCALE: Activities may be completed with or without assistive devices. 1-Phznrjfsls-vgtijab completes the activity by him/herself with no assistance from a helper. 5-Set-up or Clean-up Assistance-helper sets up or cleans up; patient completes activity. [place] assists only prior to or following the activity. 4-Supervision or Touching Assistance-helper provides verbal cues and/or touching/steadying and/or contact guard assistance as patient completes activity. Assistance may be provided throughout the activity or intermittently. 3-Partial/Moderate Assistance-helper does LESS THAN HALF the effort. [place] lifts, holds or supports trunk or limbs, but provides less than half the effort. 2-Substantial/Maximal Assistance-helper does MORE THAN HALF the effort. [place] lifts or holds trunk or limbs and provides more than half the effort. 9-Xgwhxlebg-ymbjwr does ALL the effort. Patient does none of the effort to complete the activity. Or, the assistance of 2 or more helpers is required for the patient to complete the activity. If activity was not attempted, code reason: 7-Patient Refused. 9-Not Applicable-not attempted and the patient did not perform the activity before the current illness, exacerbation or injury. 10-Not Attempted due to Environmental Limitations-(lack of equipment, weather restraints, etc.). 88-Not Attempted due to Medical Conditions or Safety Concerns. Bed Mobility: 4 Transfers (B,C,W/C): 4 Gait: 4 Indoor Mobility (Ambulation): Needed Some Help Prior Devices Use: Walker PT Evaluation-Current Subjective Patient agrees to PT. Noted dementia. Objective Patient Orientation: Confused ROM/Strength ROM Lower Extremities bilateral LE WFL Strength Lower Extremities 3+/5 grossly bilateral LE Integumentary/Posture Integumentary refer to nursing notes Bladder Incontinence: Yes Posture WFL Neuromuscular (Tone, Coordination, Reflexes) grossly intact Sensory Vision: Functional Hearing: Functional Sensation Right Lower Extremit: Intact Sensation Left Lower Extremity: Intact Transfers Roll Left to Right (QC): 5 Sit to Lying (QC): 5 Lying to Sitting/Side of Bed(Q: 5 Sit to Stand (QC): 4 Chair/Ynv-hj-Bckez Xfer(QC): 4 Gait Does the Patient Walk?: Yes Mode of Locomotion: Walk Anticipated Mode of Locomotion: Walk Walk 10 feet (QC): 4 Walk 50 ft with 2 Turns(QC): 4 Walk 150 ft (QC): 4 Distance: 300' Gait Assistive Device: FWW Comments/Gait Description NBOS/functional gait sequence Balance Sitting Static: Normal Sitting Dynamic: Normal Standing Static: Fair Standing Dynamic: Fair Assessment/Needs 89 y.o. female, will benefit from short term skilled PT to address functional strength and mobility to improve current LOF to safely return to NH at maximum LOF. Rehab Potential: Fair PT Snorkelling Instructor Goals Senior Living Goals PT Senior Living Goals Time Frame: Oct 09, 2019 Roll Left & Right (QC): 5 Sit to Lying (QC): 5 Lying-Sitting on Side/Bed(QC): 5 Sit to Stand (QC): 5 Chair/Sqj-yg-Pzxpw Xfer(QC): 5 Toilet Transfer (QC): 5 Does the Patient Walk: Yes Walk 10 feet (QC): 5 Walk 50ft with 2 Turns (QC): 5 Walk 150 ft (QC): 5 PT Plan Problem List Problem List: Activity Tolerance, Safety, Balance, Gait Treatment/Plan Treatment Plan: Continue Plan of Care Treatment Plan: Bed Mobility, Education, Functional Activity Shravan, Functional Strength, Gait, Safety, Therapeutic Exercise, Transfers Treatment Duration: Oct 09, 2019 Frequency: 6 times per week Estimated Hrs Per Day: .25 hour per day Patient and/or Family Agrees t: Yes Time/GCodes Time In: 941 Time Out: 953 Total Billed Treatment Time: 12 Total Billed Treatment 1 visit EVLowC 12 min KATHY JOHN PT Sep 27, 2019 10:03
--- NOTE | 2019-09-27 10:59 | NUR ---
PALLIATIVE CARE RN in to see patient. She is pleasantly confused knowing when asked the she is "right here" and the year is 1974. What little I did see of her mentation it appears that she is not quite ready for hospice. She is walking with CGA and is eating well. No current needs at this time.
[2019-09-27] MEDS: POLYETHYLENE GLYCOL 17 GM (MIRALAX) PACK PO SCH (11:07)
--- NOTE | 2019-09-27 11:24 | Occupational Therapy Eval ---
OT Evaluation-General/PLF Medical Diagnosis Admission Date Sep 22, 2019 at 17:00 Medical Diagnosis: pneumonia Onset Date: Sep 22, 2019 Therapy Diagnosis Therapy Diagnosis: Decreased ADL function Precautions Precautions/Isolations: Contact Isolation, Fall Prevention, Standard Precautions Safety Interventions: Bed Exit Alarm Weight Bear Status Weight Bearing Restriction: Weight Bearing/Tolerated Referral Physician: Daniel Referral Reason: Activity Tolerance, Self Care, Evaluation/Treatment, Strengthening/ROM Medical History Pertinent Medical History: Atrial Fib, Dementia, HTN Additional Medical History dementia, a fib, HTN, hypothyroidism, bipolar/ depression. Current History Pt lives within half-way, dx of pneumonia; admitted with increased BP and decreased 02 Reviewed History: Yes Social History Home: [facility] Entry Into Home: Level Entry ADL-Prior Level of Function SCALE: Activities may be completed with or without assistive devices. 4-Koynkfuaiw-neklpzj completes the activity by him/herself with no assistance from a helper. 5-Set-up or Clean-up Assistance-helper sets up or cleans up; patient completes activity. [place] assists only prior to or following the activity. 4-Supervision or Touching Assistance-helper provides verbal cues and/or touching/steadying and/or contact guard assistance as patient completes activity. Assistance may be provided throughout the activity or intermittently. 3-Partial/Moderate Assistance-helper does LESS THAN HALF the effort. [place] lifts, holds or supports trunk or limbs, but provides less than half the effort. 2-Substantial/Maximal Assistance-helper does MORE THAN HALF the effort. [place] lifts or holds trunk or limbs and provides more than half the effort. 5-Iauukiiyw-syfits does ALL the effort. Patient does none of the effort to complete the activity. Or, the assistance of 2 or more helpers is required for the patient to complete the activity. If activity was not attempted, code reason: 7-Patient Refused. 9-Not Applicable-not attempted and the patient did not perform the activity before the current illness, exacerbation or injury. 10-Not Attempted due to Environmental Limitations-(lack of equipment, weather restraints, etc.). 88-Not Attempted due to Medical Conditions or Safety Concerns. ADL PLOF Comments Pt states she is able to complete all ADLs with FWW use. Pt poor historian, states she lives with her familly and her mother said she needed to come to hospital Self Care: Unknown Functional Cognition: Needed Some Help Occupation: retired Drive Self: No OT Current Status Subjective Pt seen in recliner chair, agreeable to OT kinza. Pt states no pain. Pt oriented to person, states she doesn't know what city or the year, states her mother said she needed to come to hospital and states she lives with her mother. Mental Status/Objective Patient Orientation: Person Current Hearing Aids: No Dentures/Partials: No Hand Dominance: Right Upper Extremity ROM WFL BUE Upper Extremity Coordination WFL finger opposition Upper Extremity Sensation WFL BUE Upper Extremity Strength Impaired BUE, able to reach above head. ADL-Treatment Eating (QC): 6 (brings water to mouth and drinks) Oral Hygiene (QC): 7 Shower/Bathe Self (QC): 7 Upper Body Dressing (QC): 7 Lower Body Dressing (QC): 7 On/Off Footwear (QC): 6 (Completes edge of chair.) Toileting Hygiene (QC): 7 Other Treatments Pt educated on OT role. Pt poor historian, states she is 42, has 2 children, just came from school and doesn't need to take a bath/ wipe up. 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 Pt reoriented to hospital and date/ time. Pt educated on pneumonia dx, ~2 min later educated once more and pt states, "Oh I do?" Pt completes UE movement and sit to stand to FWW with CGA. Pt denies bathroom need. Returns to chair and doffs/ dons socks. Pt educated on use of call light for nursing or to get up, pt nods. Pt left in recliner chair, all needs met, call light in reach, chair alarm on. Per charts, pt lives in half-way and based on sit to stand and sock don/ doffing pt able to complete daily tasks with SUP and cues. Education OT Patient Education: Correct positioning, Disease process, Progress toward Goal/Update tx plan, Purpose of tx/functional activities Teaching Recipient: Patient Teaching Methods: Demonstration, Discussion Response to Teaching: Verbalize Understanding, Return Demonstration, Reinforcement Needed OT Superintendent Sanitation Goals Superintendent Sanitation Goals 1=Demonstrate adherence to instructed precautions during ADL tasks. 2=Patient will verbalize/demonstrate understanding of assistive devices/modifications for ADL. 3=Patient will improve strength/tolerance for activity to enable patient to perform ADL's. OT Education/Plan Problem List/Assessment Assessment: No Skilled OT Needs ID'd Discharge Recommendations Plan/Recommendations: Discharge/Goals Met (pt at prior level) Treatment Plan/Plan of Care Treatment,Training & Education: Yes Patient would benefit from OT for education, treatment and training to promote independence in ADL's, mobility, safety and/or upper extremity function for ADL's. Plan of Care: OTHER (eval only) Treatment Duration: Sep 27, 2019 Frequency: 1 time per week (eval only) Rehab Potential: Fair Time/GCodes Start Time: 10:34 Stop Time: 10:47 Total Time Billed (hr/min): 13 Billed Treatment Time 1, EVL (13) ELADIO FRANCOIS OTR Sep 27, 2019 11:24
[2019-09-27 12:00] VITALS: BP 141/79
--- NOTE | 2019-09-27 14:00 | Physician Query Clarification ---
PQ-Uncertain Diagnosis Admission/Discharge Admission Date: Sep 22, 2019 at 17:00 Discharge Date: The medical record reflects the following clinical scenario: History/Risk Factors: Pneumonia, UTI Clinical Findings: T37.1, P 100, R 20, WBC 13.9, Lactic 1.40, BP 143/100, SOB, nausea, SaO2 89%, productive cough Treatment: IV Vancomycin, IV Piperacillin, 3L O2, Albuterol Question: Is Sepsis a clinically valid diagnosis? Sepsis was documented in the ER record by Dr. Payton with no further documentation in the medical record. Please document a response in Progress Note or Discharge Summary. 1. Yes, clinically valid, condition resolved. 2. No, condition ruled out. 3. Other, with explanation of clinical findings. 4. Undetermined, no explanation for clinical findings. PHYSICIAN RESPONSE Diagnosis clinically valid: No, conditon ruled out Please remember a lack of response to the above will prompt a phone page by CDI/Coding staff. In responding to this query, please exercise your independent professional judgment. The purpose of this communication is to more accurately reflect the complexity of your patients condition. The fact that a question is asked does not imply that any particular answer is desired or expected. Thank you for your timely response to this clarification. Requestors name: Nicholas THIS PHYSICIAN QUERY FORM IS A PERMANENT PART OF THE MEDICAL RECORD NICHOLAS BUNCH Sep 27, 2019 14:00 CARLENE ROGERS DO Sep 28, 2019 07:16
--- NOTE | 2019-09-27 14:19 | NUR ---
DONOVAN/SS spoke with the physician Dr. Rey to continue discharge planning. Plan: The patient would return back to [facility] possibly tomorrow if patient is doing well and test come back good. CM/SS spoke to the patients POA to inform her of possible return tomorrow. Will contact facility to inform them of possible discharge.
[2019-09-27 16:05] VITALS: BP 179/82
--- NOTE | 2019-09-27 16:26 | NUR ---
DONOVAN/ELINOR followed up with the patient. DONOVAN/ELINOR spoke with psychosocial rehabilitation counselor Sherron on the Rehab unit who states that the patient did not qualify for IRF. This DONOVAN/SS called Dr. Rey to inform him of this and to see what he though was appropriate for discharge. DONOVAN/ELINOR spoke with the patient who states that she would rather have Home Health come and give therapies vs a nursing facility stay. A choice form was provided to the patient for Home Health along with DME if oxygen is needed. Will continue to follow. Addendum: 09/28/19 at 1141 by YU CRUZ This note was put in on the wrong patient.
[2019-09-27 16:51] VITALS: BP 179/82
[2019-09-27] MEDS: warFARin 5 MG (COUMADIN) TAB PO SCH (17:38)
[2019-09-27 18:33] LABS: BILIRUBIN,URINE NEGATIVE (NEGATIVE); CLARITY,URINE CLEAR; COLOR,URINE YELLOW; GLUCOSE, URINE (UA) NEGATIVE (NEGATIVE); KETONES,URINE NEGATIVE (NEGATIVE); LEUKOCYTE ESTERASE ,URINE NEGATIVE (NEGATIVE); NITRITE,URINE NEGATIVE (NEGATIVE); PH,URINE 6.5 (5-9); PROTEIN,URINE NEGATIVE (NEGATIVE)
[2019-09-27 18:42] LABS: BACTERIA,URINE TRACE /HPF; WBC,URINE RARE /HPF
[2019-09-27 20:20] VITALS: BP 136/65
[2019-09-27] MEDS: SERTRALINE 50 MG (ZOLOFT) TABLET PO SCH (20:46)
[2019-09-27] MEDS: ACETAMINOPHEN 325 MG TABLET PO PRN (20:47)
[2019-09-27] MEDS: MIRTAZAPINE 15 MG (REMERON) TAB PO SCH (21:53)
[2019-09-28] VITALS: BP 128/64
[2019-09-28] MEDS: RT-ALBUTEROL/IPRATROPIUM 3 ML (DUONEB) VIAL INH SCH ×2 (01:49→09:55)
[2019-09-28 04:38] VITALS: BP 155/85
[2019-09-28] MEDS: LEVOTHYROXINE 25 MCG (LEVOTHROID) TAB PO SCH (05:15)
[2019-09-28 05:31] LABS: HEMOGLOBIN 12.8 G/DL (11.5-16.0); MEAN PLATELET VOLUME 10.6 FL (7.4-10.4); RED CELL DISTRIBUTION WIDTH 14.7 % (10.0-14.5); WHITE BLOOD COUNT 9.7 10^3/uL (4.3-11.0)
[2019-09-28 05:34] LABS: INR 1.8 (0.8-1.4)
[2019-09-28 05:44] LABS: BUN/CREATININE RATIO 20; CALCIUM 8.7 MG/DL (8.5-10.1); CARBON DIOXIDE 20 MMOL/L (21-32); CHLORIDE 109 MMOL/L (98-107); CREATININE SERUM 0.64 MG/DL (0.60-1.30); GFR ESTIMATED > 60; GLUCOSE 104 MG/DL (70-105); POTASSIUM 3.6 MMOL/L (3.6-5.0); SODIUM 139 MMOL/L (135-145)
[2019-09-28 07:55] VITALS: BP 139/80
--- NOTE | 2019-09-28 07:57 | Diagnostic Imaging Report ---
CHEST 1 VIEW, AP/PA ONLY Indication: Pneumonia Comparison: 09/24/2019 Findings: Right basilar heterogeneous consolidations have improved but persists. No pneumothorax or pleural effusion. Stable cardiac enlargement. Atherosclerotic aorta is unchanged. Impression: 1. Improving but persistent right basilar pneumonia. Dictated by: Dictated on workstation # [id number]
--- NOTE | 2019-09-28 08:06 | Progress Note ---
Subjective Time Seen by a Provider: 08:03 Subjective/Events-last exam Waiting for chest x-ray report this a.m. Patient resting comfortably. Patient not in any respiratory difficulties. Plan to discharge today on Levaquin by mouth. Objective Exam Vital Signs Date Time Temp Pulse Resp B/P (MAP) Pulse Ox O2 Delivery O2 Flow Rate FiO2 09/28/19 07:55 37.0 87 18 139/80 (99) 93 Room Air 09/28/19 04:38 36.4 95 18 155/85 (108) 95 Room Air 09/28/19 01:49 92 Room Air 09/28/19 00:00 37.2 94 22 128/64 (85) 94 Room Air 09/27/19 21:08 92 Room Air 09/27/19 20:47 Room Air 09/27/19 20:20 37.2 102 26 136/65 (88) 92 Room Air 09/27/19 16:51 36.9 97 94 09/27/19 16:21 94 Room Air 09/27/19 16:05 36.9 97 22 179/82 (114) 93 Room Air 09/27/19 12:00 37.0 87 20 141/79 (99) 94 Nasal Cannula 2.00 09/27/19 10:08 92 Room Air I & O 09/28/19 07:00 Intake Total 990 ml Output Total 550 ml Balance 440 ml Capillary Refill : Less Than 3 SecondsLess Than 3 Seconds General Appearance: No Apparent Distress, Thin HEENT: Normal ENT Inspection Neck: Normal Inspection Respiratory: No Accessory Muscle Use, Decreased Breath Sounds Cardiovascular: Irregularly Irregular Gastrointestinal: non tender, soft Results Lab Laboratory Tests 09/27/19 08:38: Prothrombin Time 19.2H, INR Comment 1.5H 09/27/19 16:30: Urine Color YELLOW, Urine Clarity CLEAR, Urine pH 6.5, Urine Specific [place] 1.020, Urine Protein NEGATIVE, Urine Glucose (UA) NEGATIVE, Urine Ketones NEGATIVE, Urine Nitrite NEGATIVE, Urine Bilirubin NEGATIVE, Urine Urobilinogen 0.2, Urine Leukocyte Esterase NEGATIVE, Urine RBC (Auto) NEGATIVE, Urine RBC NONE, Urine WBC RARE, Urine Squamous Epithelial Cells 2-5, Urine Crystals NONE, Urine Bacteria TRACE, Urine Casts NONE, Urine Mucus SMALLH, Urine Culture Indicated NO 09/28/19 04:59: Prothrombin Time 22.0H, INR Comment 1.8H, White Blood Count 9.7, Red Blood Count 4.43, Hemoglobin 12.8, Hematocrit 40, Mean Corpuscular Volume 89, Mean Corpuscular Hemoglobin 29, Mean Corpuscular Hemoglobin Concent 32, Red Cell Distribution Width 14.7H, Platelet Count 234, Mean Platelet Volume 10.6H, Sodium Level 139, Potassium Level 3.6, Chloride Level 109H, Carbon Dioxide Level 20L, Anion Gap 10, Blood Urea Nitrogen 13, Creatinine 0.64, Estimat Glomerular Filtration Rate > 60, BUN/Creatinine Ratio 20, Glucose Level 104, Calcium Level 8.7 Microbiology 09/23/19 MRSA Screen - Final, Complete MRSA not isolated 09/22/19 Blood Culture - Preliminary, Resulted No growth 09/22/19 Urine Culture - Final, Complete Escherichia coli Enterococcus faecalis See Comments Assessment/Plan Assessment/Plan Assess & Plan/Chief Complaint Pneumonia. UTI. Hypoxia. Dementia. Pulmonary nodule. Cough. . 09/27/19. Pneumonia. UTI. Hypoxia. Dementia. Pulmonary nodule. Cough. Hypertension. . 09/28/2019. Pneumonia. UTI resolved. Dementia. Pulmonary nodule. Cough. Hypertension. Clinical Quality Measures Admission Status Admission Dx pneumonia. UTI. Hypoxia. Dementia. Hypothyroid. Atrial fibrillation DVT/VTE Risk/Contraindication: Risk Factor Score Per Nursin RFS Level Per Nursing on Admit: 3=High Contraindications-Pharm: Other *list below* CARLENE ROGERS DO Sep 28, 2019 08:06
[2019-09-28] MEDS: CARVEDILOL 12.5 MG (COREG) TABLET PO SCH (08:24)
[2019-09-28] MEDS: risperiDONE 0.25 MG (RisperDAL) TAB PO SCH (08:24)
[2019-09-28] MEDS: LORATADINE (CLARITIN) 10 MG TAB PO SCH (08:24)
[2019-09-28] MEDS: LACTULOSE SYRUP 10GM/15ML (ENULOSE) 30ML UDC PO SCH (08:25)
[2019-09-28] MEDS: POLYETHYLENE GLYCOL 17 GM (MIRALAX) PACK PO SCH (08:25)
[2019-09-28] MEDS: DOCUSATE SODIUM 100 MG (COLACE) CAP PO SCH (08:25)
[2019-09-28] MEDS: lisINopril 10 MG (PRINIVIL) TABLET PO SCH (08:25)
[2019-09-28] MEDS ORDERED: LEVOFLOXACIN 750 MG TAB (LEVAQUIN) PO SCH (11:00)
--- NOTE | 2019-09-28 11:52 | NUR ---
CM/SS discharge planning today. CM/SS called [facility] (return to facility) to set up a leaf size picker time for the patient. They stated that it would be within the hour. The patients finalized discharge orders and medical records were sent to the facility. The nurse was notified on leaf size picker time. The patient JIE Hager was notified of discharge from the hospital for return back to the facility. No other needs at this time.
--- NOTE | 2019-09-28 18:48 | Discharge Summary ---
Diagnosis/Chief Complaint Date of Admission Sep 22, 2019 at 17:00 Date of Discharge Sep 28, 2019 at 12:58 Discharge Date: Sep 28, 2019 Discharge Time: 18:44 Discharge Diagnosis UTI. UTI due to Escherichia coli and Enterococcus faecalis. 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 Hypoxia. Pneumonia. Dementia. Hypothyroid. Atrial fibrillation. Hypertension Reason Hospital Visit [facility] Received call from nurse that blood pressure is extremely high. Patient is nauseous. Patient's pulse ox went down. Patient transferred to emergency room showing pneumonia. Patient has dementia and unable to give any history Discharge Summary Discharge Physical Examination Allergies: Coded Allergies: No Known Drug Allergies (Unverified , 09/22/19) Vitals & I&Os Vital Signs Date Time Temp Pulse Resp B/P (MAP) Pulse Ox O2 Delivery O2 Flow Rate FiO2 09/28/19 09:55 93 Room Air 09/28/19 07:55 37.0 87 18 139/80 (99) 09/27/19 12:00 2.00 09/23/19 10:51 28 Hospital Course Patient in hospital did better. [facility] Labs (last 24 hrs) Laboratory Tests 09/22/19 14:20: White Blood Count 12.5H, Red Blood Count 4.87, Hemoglobin 14.2, Hematocrit 43, Mean Corpuscular Volume 89, Mean Corpuscular Hemoglobin 29, Mean Corpuscular Hemoglobin Concent 33, Red Cell Distribution Width 15.1H, Platelet Count 177, Mean Platelet Volume 11.2H, Neutrophils (%) (Auto) 90H, Lymphocytes (%) (Auto) 5L, Monocytes (%) (Auto) 5, Eosinophils (%) (Auto) 1, Basophils (%) (Auto) 0, Neutrophils # (Auto) 11.2H, Lymphocytes # (Auto) 0.6L, Monocytes # (Auto) 0.6, Eosinophils # (Auto) 0.1, Basophils # (Auto) 0.0, Neutrophils % (Manual) 83, Lymphocytes % (Manual) 5, Monocytes % (Manual) 3, Band Neutrophils 9, Blood Morphology Comment NORMAL, Prothrombin Time 31.7H, INR Comment 2.9H, Activated Partial Thromboplast Time 44H, Sodium Level 141, Potassium Level 3.9, Chloride Level 109H, Carbon Dioxide Level 20L, Anion Gap 12, Blood Urea Nitrogen 30H, Creatinine 0.86, Estimat Glomerular Filtration Rate > 60, BUN/Creatinine Ratio 35, Glucose Level 134H, Lactic Acid Level 1.40, Calcium Level 8.8, Corrected Calcium 9.1, Total Bilirubin 0.4, Aspartate Amino Transf (AST/SGOT) 19, Alanine Aminotransferase (ALT/SGPT) 14, Alkaline Phosphatase 62, Total Protein 6.5, Albumin 3.6 09/22/19 15:44: Blood Gas Puncture Site RIGHT RADIAL, Blood Gas Patient Temperature 36.6, Arterial Blood pH 7.39, Arterial Blood Partial Pressure CO2 37, Arterial Blood Partial Pressure O2 78L, Arterial Blood HCO3 22L, Arterial Blood Total CO2 23.4, Arterial Blood Oxygen Saturation 96, Arterial Blood Base Excess -2.1, Godwin Test POSITIVE, Blood Gas Ventilator Setting NO, Blood Gas Inspired Oxygen 3 L 09/22/19 15:59: Urine Color YELLOW, Urine Clarity CLEAR, Urine pH 6.0, Urine Specific [place] >=1.030, Urine Protein NEGATIVE, Urine Glucose (UA) NEGATIVE, Urine Ketones NEGATIVE, Urine Nitrite POSITIVE, Urine Bilirubin NEGATIVE, Urine Urobilinogen 0.2, Urine Leukocyte Esterase NEGATIVE, Urine RBC (Auto) NEGATIVE, Urine RBC NONE, Urine WBC 5-10H, Urine Squamous Epithelial Cells 5-10, Urine Crystals NONE, Urine Bacteria LARGEH, Urine Casts NONE, Urine Mucus NEGATIVE, Urine Culture Indicated CULTURE PENDING 09/22/19 17:00: Lab Scanned Report Referred Lab Report 09/23/19 05:50: White Blood Count 13.9H, Red Blood Count 3.95L, Hemoglobin 11.4L, Hematocrit 36, Mean Corpuscular Volume 90, Mean Corpuscular Hemoglobin 29, Mean Corpuscular Hemoglobin Concent 32, Red Cell Distribution Width 15.0H, Platelet Count 136, Mean Platelet Volume 11.0H, Neutrophils (%) (Auto) 85H, Lymphocytes (%) (Auto) 10L, Monocytes (%) (Auto) 5, Eosinophils (%) (Auto) 0, Basophils (%) (Auto) 0, Neutrophils # (Auto) 11.8H, Lymphocytes # (Auto) 1.3, Monocytes # (Auto) 0.7, Eosinophils # (Auto) 0.0, Basophils # (Auto) 0.0, Prothrombin Time 39.7H, INR Comment 3.9H, Sodium Level 140, Potassium Level 3.6, Chloride Level 112H, Carbon Dioxide Level 19L, Anion Gap 9, Blood Urea Nitrogen 21H, Creatinine 0.74, Estimat Glomerular Filtration Rate > 60, BUN/Creatinine Ratio 28, Glucose Level 89, Calcium Level 7.8L, Corrected Calcium 8.6, Total Bilirubin 1.0, Aspartate Amino Transf (AST/SGOT) 21, Alanine Aminotransferase (ALT/SGPT) 14, Alkaline Phosphatase 50, Total Protein 5.1L, Albumin 3.0L 09/23/19 08:24: Magnesium Level 1.6, Thyroid Stimulating Hormone (TSH) 0.92 09/24/19 04:45: White Blood Count 9.1, Red Blood Count 4.01L, Hemoglobin 11.5, Hematocrit 36, Mean Corpuscular Volume 90, Mean Corpuscular Hemoglobin 29, Mean Corpuscular H emoglobin Concent 32, Red Cell Distribution Width 15.0H, Platelet Count 128L, Mean Platelet Volume 11.3H, Prothrombin Time 33.5H, INR Comment 3.1H, Sodium Level 144, Potassium Level 3.7, Chloride Level 115H, Carbon Dioxide Level 20L, Anion Gap 9, Blood Urea Nitrogen 16, Creatinine 0.75, Estimat Glomerular Filtration Rate > 60, BUN/Creatinine Ratio 21, Glucose Level 104, Calcium Level 8.2L, Corrected Calcium 9.0, Total Bilirubin 0.8, Aspartate Amino Transf (AST/SGOT) 28, Alanine Aminotransferase (ALT/SGPT) 23, Alkaline Phosphatase 51, Total Protein 5.6L, Albumin 3.0L 09/24/19 16:21: Vancomycin Level Trough 5.8L 09/25/19 04:55: White Blood Count 8.8, Red Blood Count 4.13L, Hemoglobin 12.0, Hematocrit 37, Mean Corpuscular Volume 89, Mean Corpuscular Hemoglobin 29, Mean Corpuscular Hemoglobin Concent 33, Red Cell Distribution Width 14.9H, Platelet Count 146, Mean Platelet Volume 11.3H, Sodium Level 144, Potassium Level 3.3L, Chloride Level 114H, Carbon Dioxide Level 21, Anion Gap 9, Blood Urea Nitrogen 9, Creatinine 0.64, Estimat Glomerular Filtration Rate > 60, BUN/Creatinine Ratio 14, Glucose Level 79, Calcium Level 8.5, Corrected Calcium 9.2, Total Bilirubin 1.2H, Aspartate Amino Transf (AST/SGOT) 19, Alanine Aminotransferase (ALT/SGPT) 17, Alkaline Phosphatase 54, Total Protein 5.7L, Albumin 3.1L 09/26/19 04:30: Prothrombin Time 17.0H, INR Comment 1.3 09/27/19 08:38: Prothrombin Time 19.2H, INR Comment 1.5H 09/27/19 16:30: Urine Color YELLOW, Urine Clarity CLEAR, Urine pH 6.5, Urine Specific [place] 1.020, Urine Protein NEGATIVE, Urine Glucose (UA) NEGATIVE, Urine Ketones NEGATIVE, Urine Nitrite NEGATIVE, Urine Bilirubin NEGATIVE, Urine Urobilinogen 0.2, Urine Leukocyte Esterase NEGATIVE, Urine RBC (Auto) NEGATIVE, Urine RBC NONE, Urine WBC RARE, Urine Squamous Epithelial Cells 2-5, Urine Crystals NONE, Urine Bacteria TRACE, Urine Casts NONE, Urine Mucus SMALLH, Urine Culture Indicated NO 09/28/19 04:59: White Blood Count 9.7, Red Blood Count 4.43, Hemoglobin 12.8, Hematocrit 40, Mean Corpuscular Volume 89, Mean Corpuscular Hemoglobin 29, Mean Corpuscular Hemoglobin Concent 32, Red Cell Distribution Width 14.7H, Platelet Count 234, Mean Platelet Volume 10.6H, Prothrombin Time 22.0H, INR Comment 1.8H, Sodium Level 139, Potassium Level 3.6, Chloride Level 109H, Carbon Dioxide Level 20L, Anion Gap 10, Blood Urea Nitrogen 13, Creatinine 0.64, Estimat Glomerular Filtration Rate > 60, BUN/Creatinine Ratio 20, Glucose Level 104, Calcium Level 8.7 Microbiology 09/23/19 MRSA Screen - Final, Complete MRSA not isolated 09/22/19 Blood Culture - Final, Complete No growth 09/22/19 Urine Culture - Final, Complete Escherichia coli Enterococcus faecalis See Comments Laboratory Tests 09/22/19 14:20 09/23/19 05:50 09/24/19 04:45 09/25/19 04:55 09/28/19 04:59 Pending Labs Microbiology Date/Time Source Procedure Growth Status 09/23/19 09:40 Nasal MRSA Screen - Final MRSA not isolated Complete 09/22/19 16:14 Peripheral Rt Hand Blood Culture - Final No growth Complete 09/22/19 15:59 Urine Straight Cath, In/Out Urine Culture - Final Escherichia coli Enterococcus faecalis See Comments Complete 09/22/19 14:32 Nasopharynx Influenza Types A,B Antigen (MONALISA) - Final Complete 09/22/19 14:20 Peripheral Right Wrist Blood Culture - Final No growth Complete Laboratory Tests 09/22/19 14:20: White Blood Count 12.5, Red Blood Count 4.87, Hemoglobin 14.2, Hematocrit 43, Mean Corpuscular Volume 89, Mean Corpuscular Hemoglobin 29, Mean Corpuscular Hemoglobin Concent 33, Red Cell Distribution Width 15.1, Platelet Count 177, Mean Platelet Volume 11.2, Neutrophils (%) (Auto) 90, Lymphocytes (%) (Auto) 5, Monocytes (%) (Auto) 5, Eosinophils (%) (Auto) 1, Basophils (%) (Auto) 0, Neutrophils # (Auto) 11.2, Lymphocytes # (Auto) 0.6, Monocytes # (Auto) 0.6, Eosinophils # (Auto) 0.1, Basophils # (Auto) 0.0, Neutrophils % (Manual) 83, Lymphocytes % (Manual) 5, Monocytes % (Manual) 3, Band Neutrophils 9, Blood Morphology Comment NORMAL, Prothrombin Time 31.7, INR Comment 2.9, Activated Partial Thromboplast Time 44, Sodium Level 141, Potassium Level 3.9, Chloride Level 109, Carbon Dioxide Level 20, Anion Gap 12, Blood Urea Nitrogen 30, Creatinine 0.86, Estimat Glomerular Filtration Rate > 60, BUN/Creatinine Ratio 35, Glucose Level 134, Lactic Acid Level 1.40, Calcium Level 8.8, Corrected Calcium 9.1, Total Bilirubin 0.4, Aspartate Amino Transf (AST/SGOT) 19, Alanine Aminotransferase (ALT/SGPT) 14, Alkaline Phosphatase 62, Total Protein 6.5, Albumin 3.6 09/22/19 15:44: Blood Gas Puncture Site RIGHT RADIAL, Blood Gas Patient Temperature 36.6, Arterial Blood pH 7.39, Arterial Blood Partial Pressure CO2 37, Arterial Blood Partial Pressure O2 78, Arterial Blood HCO3 22, Arterial Blood Total CO2 23.4, Arterial Blood Oxygen Saturation 96, Arterial Blood Base Excess -2.1, Godwin Test POSITIVE, Blood Gas Ventilator Setting NO, Blood Gas Inspired Oxygen 3 L 09/22/19 15:59: Urine Color YELLOW, Urine Clarity CLEAR, Urine pH 6.0, Urine Specific [place] >=1.030, Urine Protein NEGATIVE, Urine Glucose (UA) NEGATIVE, Urine Ketones NEGATIVE, Urine Nitrite POSITIVE, Urine Bilirubin NEGATIVE, Urine Urobilinogen 0.2, Urine Leukocyte Esterase NEGATIVE, Urine RBC (Auto) NEGATIVE, Urine RBC NONE, Urine WBC 5-10, Urine Squamous Epithelial Cells 5-10, Urine Crystals NONE, Urine Bacteria LARGE, Urine Casts NONE, Urine Mucus NEGATIVE, Urine Culture Indicated CULTURE PENDING 09/22/19 17:00: Lab Scanned Report Referred Lab Report 09/23/19 05:50: White Blood Count 13.9, Red Blood Count 3.95, Hemoglobin 11.4, Hematocrit 36, Mean Corpuscular Volume 90, Mean Corpuscular Hemoglobin 29, Mean Corpuscular Hemoglobin Concent 32, Red Cell Distribution Width 15.0, Platelet Count 136, Mean Platelet Volume 11.0, Neutrophils (%) (Auto) 85, Lymphocytes (%) (Auto) 10, Monocytes (%) (Auto) 5, Eosinophils (%) (Auto) 0, Basophils (%) (Auto) 0, Neutrophils # (Auto) 11.8, Lymphocytes # (Auto) 1.3, Monocytes # (Auto) 0.7, Eosinophils # (Auto) 0.0, Basophils # (Auto) 0.0, Prothrombin Time 39.7, INR Comment 3.9, Sodium Level 140, Potassium Level 3.6, Chloride Level 112, Carbon Dioxide Level 19, Anion Gap 9, Blood Urea Nitrogen 21, Creatinine 0.74, Estimat Glomerular Filtration Rate > 60, BUN/Creatinine Ratio 28, Glucose Level 89, Calcium Level 7.8, Corrected Calcium 8.6, Total Bilirubin 1.0, Aspartate Amino Transf (AST/SGOT) 21, Alanine Aminotransferase (ALT/SGPT) 14, Alkaline Phosphatase 50, Total Protein 5.1, Albumin 3.0 09/23/19 08:24: Magnesium Level 1.6, Thyroid Stimulating Hormone (TSH) 0.92 09/24/19 04:45: White Blood Count 9.1, Red Blood Count 4.01, Hemoglobin 11.5, Hematocrit 36, Mean Corpuscular Volume 90, Mean Corpuscular Hemoglobin 29, Mean Corpuscular Hemoglobin Concent 32, Red Cell Distribution Width 15.0, Platelet Count 128, Sera n Platelet Volume 11.3, Prothrombin Time 33.5, INR Comment 3.1, Sodium Level 144, Potassium Level 3.7, Chloride Level 115, Carbon Dioxide Level 20, Anion Gap 9, Blood Urea Nitrogen 16, Creatinine 0.75, Estimat Glomerular Filtration Rate > 60, BUN/Creatinine Ratio 21, Glucose Level 104, Calcium Level 8.2, Corrected Calcium 9.0, Total Bilirubin 0.8, Aspartate Amino Transf (AST/SGOT) 28, Alanine Aminotransferase (ALT/SGPT) 23, Alkaline Phosphatase 51, Total Protein 5.6, Albumin 3.0 09/24/19 16:21: Vancomycin Level Trough 5.8 09/25/19 04:55: White Blood Count 8.8, Red Blood Count 4.13, Hemoglobin 12.0, Hematocrit 37, Mean Corpuscular Volume 89, Mean Corpuscular Hemoglobin 29, Mean Corpuscular Hemoglobin Concent 33, Red Cell Distribution Width 14.9, Platelet Count 146, Mean Platelet Volume 11.3, Sodium Level 144, Potassium Level 3.3, Chloride Level 114, Carbon Dioxide Level 21, Anion Gap 9, Blood Urea Nitrogen 9, Creatinine 0.64, Estimat Glomerular Filtration Rate > 60, BUN/Creatinine Ratio 14, Glucose Level 79, Calcium Level 8.5, Corrected Calcium 9.2, Total Bilirubin 1.2, Aspartate Amino Transf (AST/SGOT) 19, Alanine Aminotransferase (ALT/SGPT) 17, Alkaline Phosphatase 54, Total Protein 5.7, Albumin 3.1 09/26/19 04:30: Prothrombin Time 17.0, INR Comment 1.3 09/27/19 08:38: Prothrombin Time 19.2, INR Comment 1.5 09/27/19 16:30: Urine Color YELLOW, Urine Clarity CLEAR, Urine pH 6.5, Urine Specific [place] 1.020, Urine Protein NEGATIVE, Urine Glucose (UA) NEGATIVE, Urine Ketones NEG ATIVE, Urine Nitrite NEGATIVE, Urine Bilirubin NEGATIVE, Urine Urobilinogen 0.2, Urine Leukocyte Esterase NEGATIVE, Urine RBC (Auto) NEGATIVE, Urine RBC NONE, Urine WBC RARE, Urine Squamous Epithelial Cells 2-5, Urine Crystals NONE, Urine Bacteria TRACE, Urine Casts NONE, Urine Mucus SMALL, Urine Culture Indicated NO 09/28/19 04:59: White Blood Count 9.7, Red Blood Count 4.43, Hemoglobin 12.8, Hematocrit 40, Mean Corpuscular Volume 89, Mean Corpuscular Hemoglobin 29, Mean Corpuscular Hemoglobin Concent 32, Red Cell Distribution Width 14.7, Platelet Count 234, Mean Platelet Volume 10.6, Prothrombin Time 22.0, INR Comment 1.8, Sodium Level 139, Potassium Level 3.6, Chloride Level 109, Carbon Dioxide Level 20, Anion Gap 10, Blood Urea Nitrogen 13, Creatinine 0.64, Estimat Glomerular Filtration Rate > 60, BUN/Creatinine Ratio 20, Glucose Level 104, Calcium Level 8.7 Discharge Home Medications: Active Scripts Active Reported Tylenol (Acetaminophen) 325 Mg Tablet 650 Mg PO Q4H PRN TAKES 2 (325MG) TABLETS Warfarin Sodium 5 Mg Tablet 5 Mg PO 1800 Diclofenac Sodium 100 Gm Gel..gram. 4 Gm TOP BID APPLY TO BILAT KNEES Tramadol HCl 50 Mg Tablet 50 Mg PO TID Sertraline HCl 50 Mg Tablet 50 Mg PO DAILY Risperidone 0.5 Mg Tablet 0.5 Mg PO TID Meloxicam 15 Mg Tablet 15 Mg PO DAILY Mirtazapine 7.5 Mg Tablet 7.5 Mg PO HS Miralax (Polyethylene Glycol 3350) 17 Gm Powd.pack 17 Gm PO DAILY Milk of Magnesia (Magnesium Hydroxide) 400 Mg/5 Ml Oral.susp 30 Ml PO DAILY PRN Loratadine 10 Mg Tablet 10 Mg PO DAILY Lisinopril 5 Mg Tablet 5 Mg PO DAILY HOLD FOR BP <100/60 AND PULSE <60 Levothyroxine Sodium 25 Mcg Tablet 25 Mcg PO DAILY Lactulose 20 Gm/30 Ml Solution 30 Ml PO BID Dulcolax (Bisacodyl) 10 Mg Supp.rect 10 Mg RC DAILY PRN Colace (Docusate Sodium) 100 Mg Capsule 100 Mg PO DAILY Carvedilol 25 Mg Tablet 25 Mg PO BID HOLD FOR BP < 100/60 AND PULSE <60 Instructions to patient/family Please see electronic discharge instructions given to patient. Clinical Quality Measures DVT/VTE Risk/Contraindication: Risk Factor Score Per Nursin RFS Level Per Nursing on Admit: 3=High Contraindications-Pharm: Other *list below* CARLENE ROGERS DO Sep 28, 2019 18:48
== END 2019-09-28 12:58 | DRG 194 ==
LOC: EDUNIT# 13:14 → ER 13:15 → 4TH 17:00
PROVIDERS: ADMIT Family Medicine; ATTEND Family Medicine
DX: J18.9 Pneumonia, unspecified organism (principal); N30.00 Acute cystitis without hematuria; B96.20 Unspecified Escherichia coli [E. coli] as the cause of diseases classified elsewhere; B95.2 Enterococcus as the cause of diseases classified elsewhere; F03.90 Unspecified dementia, unspecified severity, without behavioral disturbance, psychotic disturbance, mood disturbance, and anxiety; R09.02 Hypoxemia; I11.0 Hypertensive heart disease with heart failure; I50.9 Heart failure, unspecified; I48.91 Unspecified atrial fibrillation; E03.9 Hypothyroidism, unspecified; K59.09 Other constipation; F31.9 Bipolar disorder, unspecified; R91.1 Solitary pulmonary nodule; Z79.01 Long term (current) use of anticoagulants
CPT/HCPCS: 36415; 51701; 71045; 71260; 80048; 80053; 80202; 81000; 82805; 83605; 83735; 84443; 85007; 85025; 85027; 85610; 85730; 87040; 87077; 87081; 87088; 87184; 87186; 87804; 94640; 94760; 96361; 96365; 96375

== ENCOUNTER 2020-01-24 10:05 | Emergency (ER) | payer MEDICARE ==
[~2020-01-24] VITALS: Ht 162 cm; Wt 58.5 kg
[~2020-01-24 10:05] MED LIST: ACET325T38 PO; BISA10SU58 RC; CARV25TA PO; DICL100G31 TOP; DOCU-143 PO; LACT20SO2 PO; LEVO25TA5 PO; LISI-556 PO; LORA10TA7 PO; MAGN400O7 PO; MELO15TA39 PO; MIRT7.5T8 PO; POLY17PO6 PO; RISP0.5T3 PO; SERT50TA9 PO; TRM50T PO; WARF-48 PO
--- OUTSIDE RECORDS SUMMARY | 2020-01-24 10:42 | XMS REPORT | Continuity of Care Document ---
Author Organization Unknown Address Unknown Phone Unavailable Allergies Active Description Code Type Severity Reaction Onset Reported/Identified Relationship to Patient Clinical Status Yes No Known Drug Allergies [id number] Drug Allergy Unknown N/A 09/22/2019 Medications There is no data. 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, RIGHT KNEE 03/30/2019 GELLENDER DO, CARLENE Cherry Ot M11.262 OTHER CHONDROCALCINOSIS, LEFT KNEE 03/30/2019 GELLENDER DO, CARLENE Cherry Ot M16.0 BILATERAL PRIMARY OSTEOARTHRITIS OF HIP 03/30/2019 GELLENDER DO, CARLENE Cherry Ot M17.0 BILATERAL PRIMARY OSTEOARTHRITIS OF KNEE 03/30/2019 GELLENDER DO, CARLENE Cherry Ot 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, RIGHT KNEE 03/30/2019 GELLENDER DO, CARLENE Cherry Ot M25.762 OSTEOPHYTE, LEFT KNEE 03/30/2019 GELLENDER DO, CARLENE Cherry Ot R29.6 REPEATED FALLS 04/19/2019 GELLENDER DO, CARLENE Cherry Ot D64.9 ANEMIA, UNSPECIFIED 04/19/2019 GELLENDER DO, CARLENE Cherry Ot M19.031 PRIMARY OSTEOARTHRITIS, RIGHT WRIST 04/19/2019 GELLENDER DO, CARLENE Cherry Ot M19.041 PRIMARY OSTEOARTHRITIS, RIGHT HAND 04/19/2019 GELLENDER DO, CARLENE Cherry Ot S69.91XA UNSP INJURY OF RIGHT WRIST, HAND AND FIN 04/19/2019 GELLENDER DO, CARLENE Cherry Ot W19.XXXA UNSPECIFIED FALL, INITIAL ENCOUNTER 05/03/2019 GELLENDER DO, CARLENE Cherry Ot 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, RIGHT KNEE 05/03/2019 GELLENDER DO, CARLENE Cherry Ot M11.262 OTHER CHONDROCALCINOSIS, LEFT KNEE 05/03/2019 GELLENDER DO, CARLENE Cherry Ot M16.0 BILATERAL PRIMARY OSTEOARTHRITIS OF HIP 05/03/2019 GELLENDER DO, CARLENE Cherry Ot M17.0 BILATERAL PRIMARY OSTEOARTHRITIS OF KNEE 05/03/2019 GELLENDER DO, CARLENE Cherry Ot 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, RIGHT KNEE 05/03/2019 GELLENDER DO, CARLENE Cherry Ot M25.762 OSTEOPHYTE, LEFT KNEE 05/03/2019 GELLENDER DO, CARLENE Cherry Ot R29.6 REPEATED FALLS 05/19/2019 GELLENDER DO, CARLENE Cherry Ot D64.9 ANEMIA, UNSPECIFIED 05/19/2019 GELLENDER DO, CARLENE Cherry Ot M19.031 PRIMARY OSTEOARTHRITIS, RIGHT WRIST 05/19/2019 GELLENDER DO, CARLENE Cherry Ot M19.041 PRIMARY OSTEOARTHRITIS, RIGHT HAND 05/19/2019 GELLENDER DO, CARLENE Cherry Ot S69.91XA UNSP INJURY OF RIGHT WRIST, HAND AND FIN 05/19/2019 GELLENDER DO, CARLENE Cherry Ot W19.XXXA UNSPECIFIED FALL, INITIAL ENCOUNTER 09/27/2019 GELLENDER DO, CARLENE Cherry Ot A41.9 SEPSIS, UNSPECIFIED ORGANISM 09/27/2019 GELLENDER DO, CARLENE Cherry Ot B95.2 ENTEROCOCCUS THE CAUSE OF DISEASES CL 09/27/2019 GELLENDER DO, CARLENE Cherry Ot B96.20 UNSP ESCHERICHIA COLI THE CAUSE OF DI 09/27/2019 GELLENDER DO, CARLENE Cherry Ot E03.9 HYPOTHYROIDISM, UNSPECIFIED 09/27/2019 GELLENDER DO, CARLENE Cherry Ot F03.90 UNSPECIFIED DEMENTIA WITHOUT BEHAVIORAL 09/27/2019 GELLENDER DO, CARLENE Cherry Ot F31.9 BIPOLAR DISORDER, UNSPECIFIED 09/27/2019 GELLENDER DO, CARLENE Cherry Ot I11.0 HYPERTENSIVE HEART DISEASE WITH HEART FA 09/27/2019 GELLENDER DO, CARLENE Cherry Ot I48.91 UNSPECIFIED ATRIAL FIBRILLATION 09/27/2019 GELLENDER DO, CARLENE Cherry Ot I50.9 HEART FAILURE, UNSPECIFIED 09/27/2019 GELLENDER DO, CARLENE Cherry Ot J18.9 PNEUMONIA, UNSPECIFIED ORGANISM 09/27/2019 GELLENDER DO, CARLENE Cherry Ot K59.09 OTHER CONSTIPATION 09/27/2019 GELLENDER DO, CARLENE Cherry Ot N30.00 ACUTE CYSTITIS WITHOUT HEMATURIA 09/27/2019 GELLENDER DO, CARLENE Jo Ann Ot R09.02 HYPOXEMIA 09/27/2019 GELLENDER DO, CARLENE Cherry Ot Z79.01 VP PLATFORMS (CURRENT) USE OF ANTICOAGULANT 09/28/2019 GELLENDER DO, CARLENE Cherry Ot A41.9 SEPSIS, UNSPECIFIED ORGANISM 09/28/2019 GELLENDER DO, CARLENE Cherry Ot B95.2 ENTEROCOCCUS THE CAUSE OF DISEASES CL 09/28/2019 GELLENDER DO, CARLENE Cherry Ot B96.20 UNSP ESCHERICHIA COLI THE CAUSE OF DI 09/28/2019 GELLENDER DO, CARLENE Cherry Ot E03.9 HYPOTHYROIDISM, UNSPECIFIED 09/28/2019 GELLENDER DO, CARLENE Cherry Ot F03.90 UNSPECIFIED DEMENTIA WITHOUT BEHAVIORAL 09/28/2019 GELLENDER DO, CARLENE Cherry Ot F31.9 BIPOLAR DISORDER, UNSPECIFIED 09/28/2019 GELLENDER DO, CARLENE Cherry Ot I11.0 HYPERTENSIVE HEART DISEASE WITH HEART FA 09/28/2019 GELLENDER DO, CARLENE Cherry Ot I48.91 UNSPECIFIED ATRIAL FIBRILLATION 09/28/2019 GELLENDER DO, CARLENE Cherry Ot I50.9 HEART FAILURE, UNSPECIFIED 09/28/2019 GELLENDER DO, CARLENE Cherry Ot J18.9 PNEUMONIA, UNSPECIFIED ORGANISM 09/28/2019 GELLENDER DO, CARLENE Cherry Ot K59.09 OTHER CONSTIPATION 09/28/2019 GELLENDER DO, CARLENE Cherry Ot N30.00 ACUTE CYSTITIS WITHOUT HEMATURIA 09/28/2019 GELLENDER DO, CARLENE Cherry Ot R09.02 HYPOXEMIA 09/28/2019 GELLENDER DO, CARLENE Cherry Ot Z79.01 DETENTION (CURRENT) USE OF ANTICOAGULANT 09/28/2019 GELLENDER DO, CARLENE Cherry Ot A41.9 SEPSIS, UNSPECIFIED ORGANISM 09/28/2019 GELLENDER DO, CARLENE Cherry Ot B95.2 ENTEROCOCCUS THE CAUSE OF DISEASES CL 09/28/2019 GELLENDER DO, CARLENE Cherry Ot B96.20 UNSP ESCHERICHIA COLI THE CAUSE OF DI 09/28/2019 GELLENDER DO, CARLENE Cherry Ot E03.9 HYPOTHYROIDISM, UNSPECIFIED 09/28/2019 GELLENDER DO, CARLENE Cherry Ot F03.90 UNSPECIFIED DEMENTIA WITHOUT BEHAVIORAL 09/28/2019 GELLENDER DO, CARLENE Cherry Ot F31.9 BIPOLAR DISORDER, UNSPECIFIED 09/28/2019 GELLENDER DO, CARLENE Cherry Ot I11.0 HYPERTENSIVE HEART DISEASE WITH HEART FA 09/28/2019 GELLENDER DO, CARLENE Cherry Ot I48.91 UNSPECIFIED ATRIAL FIBRILLATION 09/28/2019 GELLENDER DO, CARLENE Cherry Ot I50.9 HEART FAILURE, UNSPECIFIED 09/28/2019 GELLENDER DO, CARLENE Cherry Ot J18.9 PNEUMONIA, UNSPECIFIED ORGANISM 09/28/2019 GELLENDER DO, CARLENE Cherry Ot K59.09 OTHER CONSTIPATION 09/28/2019 GELLENDER DO, CARLENE Cherry Ot N30.00 ACUTE CYSTITIS WITHOUT HEMATURIA 09/28/2019 GELLENDER DO, CARLENE Cherry Ot R09.02 HYPOXEMIA 09/28/2019 GELLENDER DO, CARLENE Cherry Ot R91.1 SOLITARY PULMONARY NODULE 09/28/2019 GELLENDER DO, CARLENE Cherry Ot Z79.01 DETENTION (CURRENT) USE OF ANTICOAGULANT Procedures There is no data. Results Test Result Range Complete blood count (CBC) with automate d white blood cell (WBC) differential - 04/14/19 15:12 Blood leukocytes automated count (number/volume) 9.9 10*3/uL 4.3-11.0 Blood erythrocytes automated count (number/volume) 4.60 10*6/uL 4.35-5.85 Venous blood hemoglobin measurement (mass/volume) 13.1 g/dL 11.5-16.0 Blood hematocrit (volume fraction) 41 % 35-52 Automated erythrocyte mean corpuscular volume 89 [ foz_us] 80-99 Automated erythrocyte mean corpuscular h emoglobin (mass per erythrocyte) 29 pg 25-34 Automated erythrocyte mean corpuscular h emoglobin concentration measurement (mass/volume) 32 g/dL 32-36 Automated erythrocyte distribution width ratio 15. 8 % 10.0- 14.5 Automated blood platelet count (count/volume) 276 10*3/uL 130-400 Automated blood platelet mean volume measurement 10.5 [foz_us] 7.4-10.4 Automated blood neutrophils/100 leukocytes 76 % 42-75 Automated blood lymphocytes/100 leukocytes 10 % 12-44 Blood monocytes/100 leukocytes 14 % 0-12 Automated blood eosinophils/100 leukocytes 0 % 0-10 Automated blood basophils/100 leukocytes 0 % 0-10 Blood neutrophils automated count (number/volume) 7.5 10*3 1.8-7.8 Blood lymphocytes automated count (number/volume) 0.9 10*3 1.0-4.0 Blood monocytes automated count (number/volume) 1. 4 10*3 0.0-1.0 Automated eosinophil count 0.0 10*3/uL 0 .0-0.3 Automated blood basophil count (count/volume) 0.0 10*3/uL 0.0-0.1 Bacterial blood culture - 09/22/19 14:20 Bacterial blood culture NG NRG Bacterial urine culture - 09/22/19 15:59 Bacterial urine culture SEE COMMEN NRG COLONY COUNT . NRG FTX;REPORTABLE SUSCEPTIBILITY REPORTED 09-25-19 144 3 NRG FREE TEXT ENTRY 2 ID CONFIRMED BY RML N RG Dirithromycin susceptibility test by dis k diffusion - 09/22/19 15:59 Gentamicin susceptibility test by minimum inhibitory c oncentration <= NRG Trimethoprim/sulfamethoxazole susceptibi lity test by minimum inhibitoryconcentration <= NRG Levofloxacin susceptibility test by minimum inhibitory concentration <= NRG Ampicillin susceptibility test by minimum inhibitory c oncentration > NRG Cefazolin susceptibility test by minimum inhibitory co ncentration > NRG Ceftriaxone susceptibility test by minimum inhibitory concentration > NRG Ciprofloxacin susceptibility test by minimum inhibitor y concentration <= NRG Meropenem susceptibility test by minimum inhibitory co ncentration <= NRG Nitrofurantoin susceptibility test by mi nimum inhibitory concentration 32 NRG Amoxicillin and clavulanate potassium susc MONALISA R NRG Dirithromycin susceptibility test by dis k diffusion - 09/22/19 15:59 Vancomycin susceptibility test by minimum inhibitory c oncentration <= NRG Levofloxacin susceptibility test by minimum inhibitory concentration 2 NRG Ampicillin susceptibility test by minimum inhibitory c oncentration 1 NRG Nitrofurantoin susceptibility test by mi nimum inhibitory concentration <= NRG Linezolid susceptibility test by minimum inhibitory co ncentration <= NRG Daptomycin susc MONALISA 4 NRG Bacterial blood culture - 09/22/19 16:14 Bacterial blood culture NG NRG Complete blood count (CBC) with automate d white blood cell (WBC) differential - 09/23/19 05:50 Blood leukocytes automated count (number/volume) 13.9 10*3/uL 4.3-11.0 Blood erythrocytes automated count (number/volume) 3.95 10*6/uL 4.35-5.85 Venous blood hemoglobin measurement (mass/volume) 11.4 g/dL 11.5-16.0 Blood hematocrit (volume fraction) 36 % 35-52 Automated erythrocyte mean corpuscular volume 90 [ foz_us] 80-99 Automated erythrocyte mean corpuscular h emoglobin (mass per erythrocyte) 29 pg 25-34 Automated erythrocyte mean corpuscular h emoglobin concentration measurement (mass/volume) 32 g/dL 32-36 Automated erythrocyte distribution width ratio 15. 0 % 10.0- 14.5 Automated blood platelet count (count/volume) 136 10*3/uL 130-400 Automated blood platelet mean volume measurement 11.0 [foz_us] 7.4-10.4 Automated blood neutrophils/100 leukocytes 85 % 42-75 Automated blood lymphocytes/100 leukocytes 10 % 12-44 Blood monocytes/100 leukocytes 5 % 0-12 Automated blood eosinophils/100 leukocytes 0 % 0-10 Automated blood basophils/100 leukocytes 0 % 0-10 Blood neutrophils automated count (number/volume) 11.8 10*3 1.8-7.8 Blood lymphocytes automated count (number/volume) 1.3 10*3 1.0-4.0 Blood monocytes automated count (number/volume) 0. 7 10*3 0.0-1.0 Automated eosinophil count 0.0 10*3/uL 0 .0-0.3 Automated blood basophil count (count/volume) 0.0 10*3/uL 0.0-0.1 PT panel in platelet poor plasma by coag ulation assay - 09/23/19 05:50 Prothrombin time (PT) in platelet poor plasma by coagu lation assay 39.7 s 12.2-14.7 INR in platelet poor plasma or blood by coagulation as say 3.9 0.8-1.4 Comprehensive metabolic panel - 09/23/19 05:50 Serum or plasma sodium measurement (moles/volume) 140 mmol/L 135-145 Serum or plasma potassium measurement (moles/volume) 3.6 mmol/L 3.6-5.0 Serum or plasma chloride measurement (moles/volume) 112 mmol/L 98-107 Carbon dioxide 19 mmol/L 21-32 Serum or plasma anion gap determination (moles/volume) 9 mmol/L 5-14 Serum or plasma urea nitrogen measurement (mass/volume ) 21 mg/dL 7-18 Serum or plasma creatinine measurement (mass/volume) 0.74 mg/dL 0.60-1.30 Serum or plasma urea nitrogen/creatinine mass ratio 28 NRG Serum or plasma creatinine measurement w ith calculation of estimated glomerular filtration rate > NRG Serum or plasma glucose measurement (mass/volume) 89 mg/dL 70-105 Serum or plasma calcium measurement (mass/volume) 7.8 mg/dL 8.5-10.1 Serum or plasma total bilirubin measurement (mass/volu me) 1.0 mg/dL 0.1-1.0 Serum or plasma alkaline phosphatase marino surement (enzymatic activity/volume) 50 U/L 40-136 Serum or plasma aspartate aminotransfera se measurement (enzymatic activity/volume) 21 U/L 5-34 Serum or plasma alanine aminotransferase measurement (enzymatic activity/volume) 14 U/L 0-55 Serum or plasma protein measurement (mass/volume) 5.1 g/dL 6.4-8.2 Serum or plasma albumin measurement (mass/volume) 3.0 g/dL 3.2-4.5 CALCIUM CORRECTED 8.6 mg/dL 8.5-10.1 Magnesium - 09/23/19 08:24 Magnesium 1.6 mg/dL 1.6-2.4 THYROID STIMULATING HORMONE - 09/23/19 0 8:24 THYROID STIMULATING HORMONE 0.92 u[iU]/mL 0.35-4.94 Methicillin resistant Staphylococcus aur eus (MRSA) screening culture - 09/23/19 09:40 Methicillin resistant Staphylococcus aureus (MRSA) scr eening culture NEG NRG PT panel in platelet poor plasma by coag ulation assay - 09/24/19 04:45 Prothrombin time (PT) in platelet poor plasma by coagu lation assay 33.5 s 12.2-14.7 INR in platelet poor plasma or blood by coagulation as say 3.1 0.8-1.4 Comprehensive metabolic panel - 09/24/19 04:45 Serum or plasma sodium measurement (moles/volume) 144 mmol/L 135-145 Serum or plasma potassium measurement (moles/volume) 3.7 mmol/L 3.6-5.0 Serum or plasma chloride measurement (moles/volume) 115 mmol/L 98-107 Carbon dioxide 20 mmol/L 21-32 Serum or plasma anion gap determination (moles/volume) 9 mmol/L 5-14 Serum or plasma urea nitrogen measurement (mass/volume ) 16 mg/dL 7-18 Serum or plasma creatinine measurement (mass/volume) 0.75 mg/dL 0.60-1.30 Serum or plasma urea nitrogen/creatinine mass ratio 21 NRG Serum or plasma creatinine measurement w ith calculation of estimated glomerular filtration rate > NRG Serum or plasma glucose measurement (mass/volume) 104 mg/dL 70-105 Serum or plasma calcium measurement (mass/volume) 8.2 mg/dL 8.5-10.1 Serum or plasma total bilirubin measurement (mass/volu me) 0.8 mg/dL 0.1-1.0 Serum or plasma alkaline phosphatase marino surement (enzymatic activity/volume) 51 U/L 40-136 Serum or plasma aspartate aminotransfera se measurement (enzymatic activity/volume) 28 U/L 5-34 Serum or plasma alanine aminotransferase measurement (enzymatic activity/volume) 23 U/L 0-55 Serum or plasma protein measurement (mass/volume) 5.6 g/dL 6.4-8.2 Serum or plasma albumin measurement (mass/volume) 3.0 g/dL 3.2-4.5 CALCIUM CORRECTED 9.0 mg/dL 8.5-10.1 Automated blood complete blood count (he mogram) panel - 09/24/19 04:45 Blood leukocytes automated count (number/volume) 9.1 10*3/uL 4.3-11.0 Blood erythrocytes automated count (number/volume) 4.01 10*6/uL 4.35-5.85 Venous blood hemoglobin measurement (mass/volume) 11.5 g/dL 11.5-16.0 Blood hematocrit (volume fraction) 36 % 35-52 Automated erythrocyte mean corpuscular volume 90 [ foz_us] 80-99 Automated erythrocyte mean corpuscular h emoglobin (mass per erythrocyte) 29 pg 25-34 Automated erythrocyte mean corpuscular h emoglobin concentration measurement (mass/volume) 32 g/dL 32-36 Automated erythrocyte distribution width ratio 15. 0 % 10.0- 14.5 Automated blood platelet count (count/volume) 128 10*3/uL 130-400 Automated blood platelet mean volume measurement 11.3 [foz_us] 7.4-10.4 Vancomycin trough - 09/24/19 16:21 Vancomycin trough 5.8 ug/mL 10.0-20.0 Automated blood complete blood count (he mogram) panel - 09/25/19 04:55 Blood leukocytes automated count (number/volume) 8.8 10*3/uL 4.3-11.0 Blood erythrocytes automated count (number/volume) 4.13 10*6/uL 4.35-5.85 Venous blood hemoglobin measurement (mass/volume) 12.0 g/dL 11.5-16.0 Blood hematocrit (volume fraction) 37 % 35-52 Automated erythrocyte mean corpuscular volume 89 [ foz_us] 80-99 Automated erythrocyte mean corpuscular h emoglobin (mass per erythrocyte) 29 pg 25-34 Automated erythrocyte mean corpuscular h emoglobin concentration measurement (mass/volume) 33 g/dL 32-36 Automated erythrocyte distribution width ratio 14. 9 % 10.0- 14.5 Automated blood platelet count (count/volume) 146 10*3/uL 130-400 Automated blood platelet mean volume measurement 11.3 [foz_us] 7.4-10.4 Comprehensive metabolic panel - 09/25/19 04:55 Serum or plasma sodium measurement (moles/volume) 144 mmol/L 135-145 Serum or plasma potassium measurement (moles/volume) 3.3 mmol/L 3.6-5.0 Serum or plasma chloride measurement (moles/volume) 114 mmol/L 98-107 Carbon dioxide 21 mmol/L 21-32 Serum or plasma anion gap determination (moles/volume) 9 mmol/L 5-14 Serum or plasma urea nitrogen measurement (mass/volume ) 9 mg/dL 7-18 Serum or plasma creatinine measurement (mass/volume) 0.64 mg/dL 0.60-1.30 Serum or plasma urea nitrogen/creatinine mass ratio 14 NRG Serum or plasma creatinine measurement w ith calculation of estimated glomerular filtration rate > NRG Serum or plasma glucose measurement (mass/volume) 79 mg/dL 70-105 Serum or plasma calcium measurement (mass/volume) 8.5 mg/dL 8.5-10.1 Serum or plasma total bilirubin measurement (mass/volu me) 1.2 mg/dL 0.1-1.0 Serum or plasma alkaline phosphatase marino surement (enzymatic activity/volume) 54 U/L 40-136 Serum or plasma aspartate aminotransfera se measurement (enzymatic activity/volume) 19 U/L 5-34 Serum or plasma alanine aminotransferase measurement (enzymatic activity/volume) 17 U/L 0-55 Serum or plasma protein measurement (mass/volume) 5.7 g/dL 6.4-8.2 Serum or plasma albumin measurement (mass/volume) 3.1 g/dL 3.2-4.5 CALCIUM CORRECTED 9.2 mg/dL 8.5-10.1 PT panel in platelet poor plasma by coag ulation assay - 09/26/19 04:30 Prothrombin time (PT) in platelet poor plasma by coagu lation assay 17.0 s 12.2-14.7 INR in platelet poor plasma or blood by coagulation as say 1.3 0.8-1.4 Complete urinalysis with reflex to cultu re - 09/27/19 16:30 Urine color determination YELLOW NRG Urine clarity determination CLEAR NR G Urine pH measurement by test strip 6.5 5-9 Specific gravity of urine by test strip 1.020 1.016-1.022 Urine protein assay by test strip, semi-quantitative NEGATIVE NEGATIVE Urine glucose detection by automated test strip NE GATIVE NEGATIVE Erythrocytes detection in urine sediment by light micr oscopy NEGATIVE NEGATIVE Urine ketones detection by automated test strip NE GATIVE NEGATIVE Urine nitrite detection by test strip NEGATIVE NEGATIVE Urine total bilirubin detection by test strip NEGA TIVE NEGATIVE Urine urobilinogen measurement by automated test strip (mass/volume) 0.2 mg/dL < = 1.0 Urine leukocyte esterase detection by dipstick NEG ATIVE NEGATIVE Automated urine sediment erythrocyte cou nt by microscopy (number/high power field) NONE NRG Automated urine sediment leukocyte count by microscopy (number/high power field) RARE NRG Bacteria detection in urine sediment by light microsco py TRACE NRG Squamous epithelial cells detection in u rine sediment by light microscopy 2-5 NRG Crystals detection in urine sediment by light microsco py NONE NRG Casts detection in urine sediment by light microscopy NONE NRG Mucus detection in urine sediment by light microscopy SMALL NRG Complete urinalysis with reflex to culture NO NRG Automated blood complete blood count (he mogram) panel - 09/28/19 04:59 Blood leukocytes automated count (number/volume) 9.7 10*3/uL 4.3-11.0 Blood erythrocytes automated count (number/volume) 4.43 10*6/uL 4.35-5.85 Venous blood hemoglobin measurement (mass/volume) 12.8 g/dL 11.5-16.0 Blood hematocrit (volume fraction) 40 % 35-52 Automated erythrocyte mean corpuscular volume 89 [ foz_us] 80-99 Automated erythrocyte mean corpuscular h emoglobin (mass per erythrocyte) 29 pg 25-34 Automated erythrocyte mean corpuscular h emoglobin concentration measurement (mass/volume) 32 g/dL 32-36 Automated erythrocyte distribution width ratio 14. 7 % 10.0- 14.5 Automated blood platelet count (count/volume) 234 10*3/uL 130-400 Automated blood platelet mean volume measurement 10.6 [foz_us] 7.4-10.4 PT panel in platelet poor plasma by coag ulation assay - 09/28/19 04:59 Prothrombin time (PT) in platelet poor plasma by coagu lation assay 22.0 s 12.2-14.7 INR in platelet poor plasma or blood by coagulation as say 1.8 0.8-1.4 Whole blood basic metabolic panel - 04/10 04:59 Serum or plasma sodium measurement (moles/volume) 139 mmol/L 135-145 Serum or plasma potassium measurement (moles/volume) 3.6 mmol/L 3.6-5.0 Serum or plasma chloride measurement (moles/volume) 109 mmol/L 98-107 Carbon dioxide 20 mmol/L 21-32 Serum or plasma anion gap determination (moles/volume) 10 mmol/L 5-14 Serum or plasma urea nitrogen measurement (mass/volume ) 13 mg/dL 7-18 Serum or plasma creatinine measurement (mass/volume) 0.64 mg/dL 0.60-1.30 Serum or plasma urea nitrogen/creatinine mass ratio 20 NRG Serum or plasma creatinine measurement w ith calculation of estimated glomerular filtration rate > NRG Serum or plasma glucose measurement (mass/volume) 104 mg/dL 70-105 Serum or plasma calcium measurement (mass/volume) 8.7 mg/dL 8.5-10.1 Encounters ACCT No. Visit Date/Time Discharge Status Pt. Type Provider Facility Loc./Unit Complaint [id number] 10/23/2018 10:13:41 10/23/2018 23:59: 59 CLS Outpatient Boyd Mane [id number] 10/19/2018 14:58:12 10/19/2018 23:59: 59 CLS Outpatient Boyd Mane [id number] 09/01/2018 14:16:31 09/01/2018 23:59: 59 CLS Outpatient Boyd Mane [id number] 08/11/2018 16:47:10 08/11/2018 23:59: 59 CLS Outpatient Yury Maneley Chepe [id number] 07/24/2018 16:22:28 07/24/2018 23:59: 59 CLS Outpatient Yury Maneley Chepe [id number] 07/01/2018 16:40:13 07/01/2018 23:59: 59 CLS Outpatient Boyd Mane [id number] 06/05/2018 14:08:45 06/05/2018 23:59: 59 CLS Outpatient Burak, Bandar [id number] 05/21/2018 15:54:52 05/21/2018 23:59: 59 CLS Outpatient Burak, Bandar [id number] 04/16/2018 15:57:32 04/16/2018 23:59: 59 CLS Outpatient Burak, Bandar [id number] 04/07/2018 14:46:24 04/07/2018 23:59: 59 CLS Outpatient Burak, Bandar [id number] 03/26/2018 16:07:00 03/26/2018 23:59: 59 CLS Outpatient Burak, Bandar [id number] 03/19/2018 12:32:33 03/19/2018 23:59: 59 CLS Outpatient Burak, Bandar [id number] 03/11/2018 12:23:35 03/11/2018 23:59: 59 CLS Outpatient Burak, Bandar [id number] 03/04/2018 11:37:26 03/04/2018 23:59: 59 CLS Outpatient Burak, Bandar [id number] 01/27/2018 14:30:47 01/27/2018 23:59: 59 CLS Outpatient Burak, Bandar [id number] 01/15/2018 17:48:00 01/15/2018 23:59: 59 CLS Outpatient Burak, Bandar [id number] 12/31/2017 12:13:35 12/31/2017 23:59: 59 CLS Outpatient Juana Frank [id number] 12/31/2017 12:13:14 12/31/2017 23:59: 59 CLS Outpatient Burak, Bandar [id number] 12/10/2017 14:35:52 12/10/2017 23:59: 59 CLS Outpatient Fermin Hunt [id number] 11/28/2017 12:02:03 11/28/2017 23:59: 59 CLS Outpatient Burak, Bandar [id number] 11/14/2017 11:44:13 11/14/2017 23:59: 59 CLS Outpatient Burak, Bandar [id number] 10/28/2017 15:33:09 10/28/2017 23:59: 59 CLS Outpatient Burak, Bandar [id number] 10/21/2017 12:03:43 10/21/2017 23:59: 59 CLS Outpatient Burak, Bandar [id number] 10/21/2017 11:54:37 10/21/2017 23:59: 59 CLS Outpatient Burak, Bandar [id number] 09/25/2017 11:09:34 09/25/2017 23:59: 59 CLS Outpatient Burak, Bandar [id number] 09/18/2017 12:12:09 09/18/2017 23:59: 59 CLS Outpatient Burak, Bandar [id number] 09/10/2017 12:31:34 09/10/2017 23:59: 59 CLS Outpatient Burak, Bandar [id number] 08/18/2017 14:00:10 08/18/2017 23:59: 59 CLS Outpatient Burak, Bandar [id number] 08/05/2017 11:39:12 08/05/2017 23:59: 59 CLS Outpatient Burak, Bandar [id number] 05/27/2017 15:12:24 05/27/2017 23:59: 59 CLS Outpatient Burak, Bandar [id number] 05/22/2017 14:41:16 05/22/2017 23:59: 59 CLS Outpatient Burak, Bandar [id number] 05/13/2017 15:39:53 05/13/2017 23:59: 59 CLS Outpatient Burak, Bandar [id number] 05/09/2017 10:14:14 05/09/2017 23:59: 59 CLS Outpatient Burak, Bandar [id number] 05/08/2017 12:10:38 05/08/2017 23:59: 59 CLS Outpatient Burak, Bandar [id number] 09/22/2019 17:00:00 12:58:00 DIS Inpatient CARLENE ROGERS DO [facility] 4TH PNA,SEPSIS,HYPO XIX,UTI [id number] 04/14/2019 14:57:00 23:59:59 CLS Outpatient CARLENE ROGERS DO [facility] LAB FALL [id number] 03/29/2019 15:19:00 23:59:59 CLS Outpatient CARLENE ROGERS DO [facility] RAD PAIN-FALL [id number] 02/24/2019 16:36:00 23:59:[address] [facility] Outpatient CARLENE ROGERS DO [facility] RAD R WRIST PAIN
[2020-01-24 10:45] VITALS: BP_SYST 118; BP_SYST 131; BP_SYST 152; BP_DIAS 53; BP_DIAS 74; BP_DIAS 86
--- NOTE | 2020-01-24 10:54 | ED Fall/Injury ---
General Chief Complaint: Trauma-Non Activation Stated Complaint: FALL Nursing Triage Note: pt presents to ed accompanied by [facility] rehab staff with complaints of fall whn walking this am. Pt has hx of dementia and according to staff she frequently walks without using her walker. staff reports it was an unwitnessed fall but that she did not appear to have loc. pt does report tenderness to the back of her head with palpation but denies any pain when not touching it. Source: patient, retirement records Exam Limitations: no limitations History of Present Illness Date Seen by Provider: January 24, 2020 Time Seen by Provider: 10:38 Initial Comments Patient presents to ER by private conveyance from [facility] with chief complaint that she was standing talking to some ladies when she started to walk off she says she lost her balance fell backwards and struck the back of her head. She denies loss of consciousness nor feeling like she was going to. She's having no nausea. Only mild pain related to an occipital hematoma. No bleeding per staff. She does take warfarin. She denies dysuria cough shortness of breath chest pain diarrhea or constipation. She denies pain anywhere else. Location Injury Occurred[facility] Allergies and Home Medications Allergies Coded Allergies: No Known Drug Allergies (Unverified , 09/22/19) Home Medications Acetaminophen 325 Mg Tablet, 650 MG PO Q4H PRN for PAIN-MILD (1-4) OR TEMPATURE, (Reported) TAKES 2 (325MG) TABLETS Bisacodyl 10 Mg Supp.rect, 10 MG RC DAILY PRN for CONSTIPATION-4TH LINE, (Reported) Carvedilol 25 Mg Tablet, 25 MG PO BID, (Reported) HOLD FOR BP < 100/60 AND PULSE <60 Diclofenac Sodium 100 Gm Gel..gram., 4 GM TOP BID, (Reported) APPLY TO BILAT KNEES Docusate Sodium 100 Mg Capsule, 100 MG PO DAILY, (Reported) Lactulose 20 Gm/30 Ml Solution, 30 ML PO BID, (Reported) Levothyroxine Sodium 25 Mcg Tablet, 25 MCG PO DAILY, (Reported) Lisinopril 5 Mg Tablet, 5 MG PO DAILY, (Reported) HOLD FOR BP <100/60 AND PULSE <60 Loratadine 10 Mg Tablet, 10 MG PO DAILY, (Reported) Magnesium Hydroxide 400 Mg/5 Ml Oral.susp, 30 ML PO DAILY PRN for CONSTIPATION- 7TH LINE, (Reported) Meloxicam 15 Mg Tablet, 15 MG PO DAILY, (Reported) Mirtazapine 7.5 Mg Tablet, 7.5 MG PO HS, (Reported) Polyethylene Glycol 3350 17 Gm Powd.pack, 17 GM PO DAILY, (Reported) Risperidone 0.5 Mg Tablet, 0.5 MG PO TID, (Reported) Sertraline HCl 50 Mg Tablet, 50 MG PO DAILY, (Reported) Tramadol HCl 50 Mg Tablet, 50 MG PO TID, (Reported) Warfarin Sodium 5 Mg Tablet, 5 MG PO 1800, (Reported) Patient Home Medication List Home Medication List Reviewed: Yes Review of Systems Review of Systems Constitutional: No chills, No diaphoresis Eyes: Denies Blindness, Denies Drainage Ears, Nose, Mouth, Throat: denies ear pain, denies ear discharge Respiratory: No cough, No short of breath Cardiovascular: No chest pain, No edema Gastrointestinal: No abdominal pain, No nausea Genitourinary: No discharge, No dysuria : No Musculoskeletal: No back pain, No joint pain All Other Systems Reviewed Negative Unless Noted: Yes Past Qnbluma-Jhnarw-Zajbvm Hx Patient Social History Alcohol Use: Rarely Uses Recreational Drug Use: No 2nd Hand Smoke Exposure: No Recent Hopitalizations: No Physical Abuse: No Sexual Abuse: No Mistreated: No Fear: No Immunizations Up To Date Date of Influenza Vaccine: Aug 08, 2019 Seasonal Allergies Seasonal Allergies: No Past Medical History Respiratory: No Cardiac: Yes (CHF) Atrial Fibrillation, Hypertension Neurological: Yes Dementia Genitourinary: No Gastrointestinal: Yes Chronic Constipation Musculoskeletal: No Endocrine: Yes Hypothyroidsim HEENT: No Cancer: No Psychosocial: Yes Bipolar, Depression Integumentary: No Physical Exam Vital Signs Vital Signs - First Documented Capillary Refill : Less Than 3 Seconds Height, Weight, BMI Height: '" Weight: lbs. oz. kg; 22.05 BMI Method: General Appearance: WD/WN, no apparent distress HEENT: PERRL/EOMI, normal ENT inspection, TMs normal, pharynx normal, other (negative for Dan sign or raccoon eyes. She has a mild 2 cm wide by half centimeter tall hematoma over the occiput.) Neck: non-tender, full range of motion, supple, normal inspection Cardiovascular: normal peripheral pulses, regular rate, rhythm Respiratory: no respiratory distress, no accessory muscle use Peripheral Pulses: 2+ Dorsalis Pedis (R), 2+ Left Dors-Pedis (L) Gastrointestinal: non tender, soft Extremities: normal range of motion, non-tender, normal capillary refill Neurologic/Psychiatric: alert, normal mood/affect, oriented x 3 Danielle Coma Score Best Eye Response: (4) Open Spontaneously Best Verbal Response: (5) Oriented Best Motor Response: (6) Obeys Commands Danielle Total: 15 Progress/Results/Core Measures Results/Orders Lab Results Laboratory Tests Test 01/24/20 11:03 Range/Units White Blood Count 6.7 4.3-11.0 10^3/uL Red Blood Count 4.83 4.35-5.85 10^6/uL Hemoglobin 14.0 11.5-16.0 G/DL Hematocrit 43 35-52 % Mean Corpuscular Volume 89 80-99 FL Mean Corpuscular Hemoglobin 29 25-34 PG Mean Corpuscular Hemoglobin Concent 33 32-36 G/DL Red Cell Distribution Width 14.9 H 10.0-14.5 % Platelet Count 231 130-400 10^3/uL Mean Platelet Volume 10.5 H 7.4-10.4 FL Neutrophils (%) (Auto) 70 42-75 % Lymphocytes (%) (Auto) 16 12-44 % Monocytes (%) (Auto) 10 0-12 % Eosinophils (%) (Auto) 4 0-10 % Basophils (%) (Auto) 1 0-10 % Neutrophils # (Auto) 4.7 1.8-7.8 X 10^3 Lymphocytes # (Auto) 1.1 1.0-4.0 X 10^3 Monocytes # (Auto) 0.7 0.0-1.0 X 10^3 Eosinophils # (Auto) 0.2 0.0-0.3 10^3/uL Basophils # (Auto) 0.1 0.0-0.1 10^3/uL Prothrombin Time 38.9 H 12.2-14.7 SEC INR Comment 3.8 H 0.8-1.4 Sodium Level 141 135-145 MMOL/L Potassium Level 4.5 3.6-5.0 MMOL/L Chloride Level 108 H 98-107 MMOL/L Carbon Dioxide Level 23 21-32 MMOL/L Anion Gap 10 5-14 MMOL/L Blood Urea Nitrogen 25 H 7-18 MG/DL Creatinine 1.06 0.60-1.30 MG/DL Estimat Glomerular Filtration Rate 49 BUN/Creatinine Ratio 24 Glucose Level 89 70-105 MG/DL Calcium Level 9.0 8.5-10.1 MG/DL Corrected Calcium 9.3 8.5-10.1 MG/DL Total Bilirubin 0.4 0.1-1.0 MG/DL Aspartate Amino Transf (AST/SGOT) 20 5-34 U/L Alanine Aminotransferase (ALT/SGPT) 16 0-55 U/L Alkaline Phosphatase 62 40-136 U/L Total Protein 7.3 6.4-8.2 GM/DL Albumin 3.6 3.2-4.5 GM/DL My Orders Orders - ROSANGELA OCONNELL Orthostatic Vital Signs (Adult (01/24/20 10:51) Ua Culture If Indicated (01/24/20 10:51) Ct Head/Cervical Spine Wo (01/24/20 10:51) Cbc With Automated Diff (01/24/20 10:54) Comprehensive Metabolic Panel (01/24/20 10:54) Protime With Inr (01/24/20 10:54) Ed Iv/Invasive Line Start (01/24/20 11:40) Lactated Ringers (Lr 1000 Ml Iv Solution (01/24/20 11:40) Medications Given in ED Current Medications Medications Dose Ordered Sig/Heladio Route Start Time Stop Time Status Last Admin Dose Admin Lactated Ringer's 1,000 ml @ 0 mls/hr Q0M ONCE IV 01/24/20 11:40 01/24/20 11:41 DC 01/24/20 12:02 0 MLS/HR Vital Signs/I&O 01/24/20 01/24/20 01/24/20 10:30 10:30 10:45 Temp 37.0 37.0 37.0 Pulse 79 79 78 75 81 Resp 14 14 B/P (MAP) 152/86 (108) 152/86 (108) 152/86 (108) 118/53 (74) 131/74 (93) Blood Pressure Mean: 108 Progress Progress Note #1: Time: 10:54 Progress Note Case we find a subdural hematoma will check labs for anemia and PT/INR. Urinalysis of a can obtain one. Orthostats. CT of the head and neck. Progress Note #2: Time: 12:05 Progress Note Orthostatics are significant positive. A liter of fluids was ordered. Urinalysis and CT are pending. Progress Note #3: Time: 13:11 Progress Note The patient produced a urine sample mixed in stool on the commode. She is confused and anxious and would like to go home. Regarding allow her to go home and do a urinalysis outpatient. Diagnostic Imaging Diagonstic Imaging: CT (without IV contrast) Plain Films/CT/US/NM/MRI: c-spine, head Comments NAME: AMINA MACK [facility] REC#: [id number] PT STATUS: REG ER : [id number] PHYSICIAN: ROSANGELA OCONNELL MD ADMIT DATE: 01/24/20/ER Draft Date of Exam:01/24/20 CT HEAD/CERVICAL SPINE WO PROCEDURE: CT head and CT cervical spine without contrast. TECHNIQUE: Multiple contiguous axial images were obtained through the brain and cervical spine without the use of intravenous contrast. Sagittal and coronal reformations through the cervical spine were then performed. Auto Exposure Controls were utilized during the CT exam to meet ALARA standards for radiation dose reduction. INDICATION: Head injury from a fall. FINDINGS: CT head: The ventricles are normal in size, shape and position. There are no masses or hemorrhages. There are no extra-axial fluid collections. IMPRESSION: Negative CT head. CT cervical spine: Vertebral body height and alignment appear normal. Slight disc space narrowing at C5-C6 and C6-C7. There are some hypertrophic changes of the uncovertebral joints. There is no fracture or misalignment seen. IMPRESSION: Degenerative changes of the cervical spine but no acute abnormality seen. Dictated on workstation # [id number] Dict: 01/24/20 1234 Trans: 01/24/20 1240 [facility] [id number] Interpreted by: JOLANTA SNYDER MD Electronically signed by: Reviewed: Reviewed by Me Departure Impression Primary Impression: Fall Qualified Codes: W19.XXXA - Unspecified fall, initial encounter Additional Impressions: Traumatic hematoma of scalp Qualified Codes: S00.03XA - Contusion of scalp, initial encounter Orthostasis Supratherapeutic international normalized ratio (INR) Disposition: 01 HOME, SELF-CARE Condition: Stable Departure-Patient Inst. Decision time for Depature: 13:11 Referrals: CARLENE ROGERS DO (PCP/Family) Primary Care Physician Patient Instructions: Orthostatic Hypotension (DC) Add. Discharge Instructions: Drink plenty fluids. Hold your warfarin/Coumadin tonight. Plan to get a PT/INR drawn tomorrow morning with results called to the primary care team. Plan to resume your Coumadin at the normal dose tomorrow unless advised differently by your doctor. Obtain a urinalysis with culture and sensitivity as needed today or tomorrow. All discharge instructions reviewed with patient and/or family. Voiced understanding. Copy Copies To 1: CARLENE ROGERS TITUS J January 24, 2020 10:54
[2020-01-24 11:15] LABS: BASOPHILS # (AUTO) 0.1 10^3/uL (0.0-0.1); BASOPHILS % (AUTO) 1 % (0-10); EOSINOPHILS # (AUTO) 0.2 10^3/uL (0.0-0.3); EOSINOPHILS % (AUTO) 4 % (0-10); HEMATOCRIT 43 % (35-52); LYMPHOCYTES # (AUTO) 1.1 X 10^3 (1.0-4.0); LYMPHOCYTES % (AUTO) 16 % (12-44); MEAN CORPUSCULAR HEMOGLOBIN 29 PG (25-34); MEAN CORPUSCULAR HGB CONC 33 G/DL (32-36); MEAN CORPUSCULAR VOLUME 89 FL (80-99); MEAN PLATELET VOLUME 10.5 FL (7.4-10.4); MONOCYTES # (AUTO) 0.7 X 10^3 (0.0-1.0); MONOCYTES % (AUTO) 10 % (0-12); NEUTROPHILS # (AUTO) 4.7 X 10^3 (1.8-7.8); NEUTROPHILS % (AUTO) 70 % (42-75); PLATELET COUNT 231 10^3/uL (130-400); RED CELL DISTRIBUTION WIDTH 14.9 % (10.0-14.5); WHITE BLOOD COUNT 6.7 10^3/uL (4.3-11.0)
[2020-01-24 11:30] LABS: INR 3.8 (0.8-1.4); PROTHROMBIN TIME PATIENT 38.9 SEC (12.2-14.7)
[2020-01-24 11:36] LABS: ALBUMIN 3.6 GM/DL (3.2-4.5); BILIRUBIN,TOTAL 0.4 MG/DL (0.1-1.0); CREATININE SERUM 1.06 MG/DL (0.60-1.30); POTASSIUM 4.5 MMOL/L (3.6-5.0); TOTAL PROTEIN 7.3 GM/DL (6.4-8.2)
[2020-01-24] MEDS ORDERED: LACTATED RINGERS 1,000 ML IV ONE (11:40)
--- NOTE | 2020-01-24 12:41 | Diagnostic Imaging Report ---
PROCEDURE: CT head and CT cervical spine without contrast. TECHNIQUE: Multiple contiguous axial images were obtained through the brain and cervical spine without the use of intravenous contrast. Sagittal and coronal reformations through the cervical spine were then performed. Auto Exposure Controls were utilized during the CT exam to meet ALARA standards for radiation dose reduction. INDICATION: Head injury from a fall. FINDINGS: CT head: The ventricles are normal in size, shape and position. There are no masses or hemorrhages. There are no extra-axial fluid collections. IMPRESSION: Negative CT head. CT cervical spine: Vertebral body height and alignment appear normal. Slight disc space narrowing at C5-C6 and C6-C7. There are some hypertrophic changes of the uncovertebral joints. There is no fracture or misalignment seen. IMPRESSION: Degenerative changes of the cervical spine but no acute abnormality seen. Dictated by: Dictated on workstation # [id number]
[2020-01-24 13:40] VITALS: BP 124/85
== END 2020-01-24 13:40 | disposition home or self-care (01) ==
LOC: EDUNIT# 10:05 → ER 10:06
DX: S00.03XA Contusion of scalp, initial encounter (principal); I95.1 Orthostatic hypotension; R79.1 Abnormal coagulation profile; I11.0 Hypertensive heart disease with heart failure; I50.9 Heart failure, unspecified; I48.91 Unspecified atrial fibrillation; K21.9 Gastro-esophageal reflux disease without esophagitis; E03.9 Hypothyroidism, unspecified; F31.9 Bipolar disorder, unspecified; R40.2142 Coma scale, eyes open, spontaneous, at arrival to emergency department; R40.2252 Coma scale, best verbal response, oriented, at arrival to emergency department; R40.2362 Coma scale, best motor response, obeys commands, at arrival to emergency department; Z79.01 Long term (current) use of anticoagulants; W18.39XA Other fall on same level, initial encounter; W22.8XXA Striking against or struck by other objects, initial encounter
CPT/HCPCS: 36415; 70450; 72125; 80053; 85025; 85610

== ENCOUNTER 2020-08-23 10:34 | Emergency (ER) | payer MEDICARE ==
[~2020-08-23] VITALS: Ht 152 cm; Wt 60.0 kg
[~2020-08-23 10:34] MED LIST changes: -RISP0.5T3 PO; +RISP0.5T65 PO
[2020-08-23] MEDS ORDERED: NS IV 1000 ML 1,000 ML IV SCH (11:15)
--- NOTE | 2020-08-23 11:17 | ED Respiratory ---
General Chief Complaint: Cough/Cold/Flu Symptoms Stated Complaint: COVID + Nursing Triage Note: PT ARRIVED PER EMS, PT IS COVID +, TESTED 08/21 [facility] STATES STARTED HAVING SX 08/22. DENIES PAIN, PT O2 SAT 6L 100%. O2 DECREASED TO 2L, SAT 98%. PT IS CURRENTLY TAKING DECADRON PO. NO FEVERS REPORTED. PT HAS DEMENTIA. Source: RN/MD, EMS Exam Limitations: clinical condition History of Present Illness Date Seen by Provider: Aug 23, 2020 Time Seen by Provider: 11:00 Initial Comments This patient is an 89-year-old female who presents to the emergency room from a local retirement with a chief complaint of hypoxia secondary to coronavirus infection. Patient had a routine coronavirus screening test done 2 days ago. She started having symptoms yesterday including cough and increasing weakness. The patient today was noted to have low oxygen saturations, reported by the retirement in the low 80s. She does have a history of dementia by report. Th e patient herself is denying complaints of generalized pain, earache, sore throat. I do question the accuracy of her response given her history of dementia. Patient's vital signs are reviewed, the patient currently on 1 L of supplemental oxygen has saturations in the 96 to 99% range. Her blood pressure is good her respiratory rate is in the low 20s. Heart rate is in the 80s. All other review of systems attempted to be reviewed but limited secondary to the patient's history of dementia. Timing/Duration: yesterday Associated Symptoms: cough, shortness of breath Allergies and Home Medications Allergies Coded Allergies: No Known Drug Allergies (Unverified , 09/22/19) Home Medications Acetaminophen 325 Mg Tablet, 650 MG PO Q4H PRN for PAIN-MILD (1-4) OR TEMPATURE, (Reported) TAKES 2 (325MG) TABLETS Bisacodyl 10 Mg Supp.rect, 10 MG RC DAILY PRN for CONSTIPATION-4TH LINE, (Reported) Carvedilol 25 Mg Tablet, 25 MG PO BID, (Reported) HOLD FOR BP < 100/60 AND PULSE <60 Diclofenac Sodium 100 Gm Gel..gram., 4 GM TOP BID, (Reported) APPLY TO BILAT KNEES Docusate Sodium 100 Mg Capsule, 100 MG PO DAILY, (Reported) Lactulose 20 Gm/30 Ml Solution, 30 ML PO BID, (Reported) Levothyroxine Sodium 25 Mcg Tablet, 25 MCG PO DAILY, (Reported) Lisinopril 5 Mg Tablet, 5 MG PO DAILY, (Reported) HOLD FOR BP <100/60 AND PULSE <60 Loratadine 10 Mg Tablet, 10 MG PO DAILY, (Reported) Magnesium Hydroxide 400 Mg/5 Ml Oral.susp, 30 ML PO DAILY PRN for CONSTIPATION- 7TH LINE, (Reported) Meloxicam 15 Mg Tablet, 15 MG PO DAILY, (Reported) Mirtazapine 7.5 Mg Tablet, 7.5 MG PO HS, (Reported) Polyethylene Glycol 3350 17 Gm Powd.pack, 17 GM PO DAILY, (Reported) Risperidone 0.5 Mg Tablet, 0.5 MG PO TID, (Reported) Sertraline HCl 50 Mg Tablet, 50 MG PO DAILY, (Reported) Tramadol HCl 50 Mg Tablet, 50 MG PO TID, (Reported) Warfarin Sodium 5 Mg Tablet, 5 MG PO 1800, (Reported) Patient Home Medication List Home Medication List Reviewed: Yes Review of Systems Review of Systems Constitutional: malaise, weakness Respiratory: short of breath Review of systems limited secondary to patient's dementia All Other Systems Reviewed Negative Unless Noted: Yes Past Oprnoch-Wprxya-Lgoafz Hx Patient Social History Alcohol Use: Denies Use Recreational Drug Use: No Smoking Status: Never a Smoker 2nd Hand Smoke Exposure: No Recent Foreign Travel: No Contact w/Someone Who Travel: No Recent Infectious Disease Expo: No Recent Hopitalizations: No Physical Abuse: No Sexual Abuse: No Immunizations Up To Date Date of Influenza Vaccine: Aug 08, 2019 Seasonal Allergies Seasonal Allergies: No Past Medical History Respiratory: No Cardiac: Yes (CHF) Atrial Fibrillation, Hypertension Neurological: Yes Dementia Genitourinary: No Gastrointestinal: Yes Chronic Constipation Musculoskeletal: No Endocrine: Yes Hypothyroidsim HEENT: No Cancer: No Psychosocial: Yes Bipolar, Depression Integumentary: No Physical Exam Vital Signs - First Documented 08/23/20 10:35 Temp 36.7 Pulse 87 Resp 23 B/P (MAP) 146/75 (98) Pulse Ox 100 O2 Delivery Nasal Cannula O2 Flow Rate 3.00 Capillary Refill : Less Than 3 Seconds Height: '" Weight: lbs. oz. kg; 25.00 BMI Method: General Appearance: WD/WN, no apparent distress Eyes: Bilateral Eye Normal Inspection, Bilateral Eye PERRL, Bilateral Eye EOMI HEENT: other (Dry oral mucosa) Respiratory: no respiratory distress, no accessory muscle use, crackles (Occasional scattered crackles noted to the anterior chest wall bilaterally) Cardiovascular: regular rate, rhythm Gastrointestinal: non tender, soft Neurologic/Psychiatric: no motor/sensory deficits (No gross motor or sensory deficits are noted on physical exam), alert, normal mood/affect (Flat affect, mood congruent) Skin: normal color, warm/dry, other (Poor skin turgor) Progress/Results/Core Measures Suspected Sepsis Recent Fever Within 48 Hours: No Infection Criteria Present: None New/Unexplained Altered Menta: No Sepsis Screen: No Definite Risk SIRS Temperature: Pulse: 87 Respiratory Rate: 23 Blood Pressure 146 /75 Mean: 98 Results/Orders My Orders Orders - PAIGE COOK MD Ed Iv/Invasive Line Start (08/23/20 11:02) Ns Iv 1000 Ml (Sodium Chloride 0.9%) (08/23/20 11:15) Vital Signs/I&O 08/23/20 08/23/20 10:35 10:35 Temp 36.7 Pulse 87 Resp 23 B/P (MAP) 146/75 (98) Pulse Ox 100 O2 Delivery Nasal Cannula Nasal Cannula O2 Flow Rate 3.00 6.00 Capillary Refill : Less Than 3 Seconds Blood Pressure Mean: 98 Progress Note : Time: 11:16 Progress Note 89-year-old female presents to the emergency room by EMS from a local retirement with a chief complaint of low oxygen saturations and COVID-19. Patient alfonso luation today includes a physical exam. The patient on physical exam is noted to be quite dehydrated with significant skin tenting. She is demented and does not answer questions 100% accurately. She appears to be in no acute distress. Her vital signs are stable. The patient is satting well on 1 L of supplemental oxygen per nasal cannula with no respiratory distress. The patient is already on Decadron at the retirement. I do not believe that we have much more to offer in terms of treatment modalities to this 89-year-old. She is given 1 L of normal saline for hydration purposes here in the emergency department. She does not require breathing treatments. She does not require admission at this time. Patient will be sent back to the retirement with routine care. She will continue her Decadron. Return precautions will be noted. Departure Impression Primary Impression: Hypoxia Additional Impression: COVID-19 Disposition: 01 HOME, SELF-CARE Condition: Stable Departure-Patient Inst. Decision time for Depature: 12:25 Referrals: CARLENE ROGERS DO (PCP/Family) Primary Care Physician Patient Instructions: Coronavirus Disease 2019 (COVID-19) Overview Add. Discharge Instructions: Continue current therapy, oxygen per nasal cannula 1 to 2 L to keep saturations above 88% Continue routine prescribed medications Return to the emergency room for any worsening symptoms, new emergent concerns PAIGE COOK MD Aug 23, 2020 11:17
--- NOTE | 2020-08-23 11:17 | NUR ---
OS SAT 1L N/C 97%
[2020-08-23 13:14] VITALS: BP 130/75
== END 2020-08-23 13:40 | disposition home or self-care (01) ==
LOC: EDUNIT# 10:34 → ER 10:36
DX: U07.1 COVID-19 (principal); R09.02 Hypoxemia; E03.9 Hypothyroidism, unspecified; I10 Essential (primary) hypertension; I48.91 Unspecified atrial fibrillation; F31.9 Bipolar disorder, unspecified; Z79.890 Hormone replacement therapy; Z79.01 Long term (current) use of anticoagulants

== ENCOUNTER 2020-11-24 16:54 | Emergency (ER) | payer MEDICARE ==
[~2020-11-24] VITALS: Ht 152 cm; Wt 54.0 kg
[~2020-11-24 16:54] MED LIST changes: -LISI-556 PO; +LISI-729 PO; +SERT-413 PO; -SERT50TA9 PO
--- NOTE | 2020-11-24 17:09 | ED Fall/Injury ---
General Stated Complaint: FALL Source: patient Exam Limitations: no limitations History of Present Illness Date Seen by Provider: Nov 24, 2020 Time Seen by Provider: 17:07 Initial Comments To ER by private vehicle from [facility] with reports of an unwitnessed fall out of her wheelchair. Has an ecchymosis on the left cheek. She is baseline demented. Occurred: just prior to arrival Severity: moderate Context: unknown Loss of Consciousness: no loss of consciousness Associated Symptoms (Fall): Denies Symptoms Allergies and Home Medications Allergies Coded Allergies: No Known Drug Allergies (Unverified , 09/22/19) Home Medications Acetaminophen 325 Mg Tablet, 650 MG PO Q4H PRN for PAIN-MILD (1-4) OR TEMPATURE, (Reported) TAKES 2 (325MG) TABLETS Bisacodyl 10 Mg Supp.rect, 10 MG RC DAILY PRN for CONSTIPATION-4TH LINE, (Reported) Carvedilol 25 Mg Tablet, 25 MG PO BID, (Reported) HOLD FOR BP < 100/60 AND PULSE <60 Diclofenac Sodium 100 Gm Gel..gram., 4 GM TOP BID, (Reported) APPLY TO BILAT KNEES Docusate Sodium 100 Mg Capsule, 100 MG PO DAILY, (Reported) Lactulose 20 Gm/30 Ml Solution, 30 ML PO BID, (Reported) Levothyroxine Sodium 25 Mcg Tablet, 25 MCG PO DAILY, (Reported) Lisinopril 5 Mg Tablet, 5 MG PO DAILY, (Reported) HOLD FOR BP <100/60 AND PULSE <60 Loratadine 10 Mg Tablet, 10 MG PO DAILY, (Reported) Magnesium Hydroxide 400 Mg/5 Ml Oral.susp, 30 ML PO DAILY PRN for CONSTIPATION- 7TH LINE, (Reported) Meloxicam 15 Mg Tablet, 15 MG PO DAILY, (Reported) Mirtazapine 7.5 Mg Tablet, 7.5 MG PO HS, (Reported) Polyethylene Glycol 3350 17 Gm Powd.pack, 17 GM PO DAILY, (Reported) Risperidone 0.5 Mg Tablet, 0.5 MG PO TID, (Reported) Sertraline HCl 50 Mg Tablet, 50 MG PO DAILY, (Reported) Tramadol HCl 50 Mg Tablet, 50 MG PO TID, (Reported) Warfarin Sodium 5 Mg Tablet, 5 MG PO 1800, (Reported) Patient Home Medication List Home Medication List Reviewed: Yes Review of Systems Review of Systems Constitutional: see HPI Eyes: No Symptoms Reported Ears, Nose, Mouth, Throat: no symptoms reported Respiratory: no symptoms reported Cardiovascular: no symptoms reported Genitourinary: no symptoms reported Musculoskeletal: no symptoms reported Skin: no symptoms reported Psychiatric/Neurological: No Symptoms Reported Past Kjjapmz-Vtgxkn-Hxzeor Hx Patient Social History 2nd Hand Smoke Exposure: No Recent Hopitalizations: No Immunizations Up To Date Date of Influenza Vaccine: Aug 08, 2019 Seasonal Allergies Seasonal Allergies: No Past Medical History Respiratory: No Cardiac: Yes (CHF) Atrial Fibrillation, Hypertension Neurological: Yes Dementia Genitourinary: No Gastrointestinal: Yes Chronic Constipation Musculoskeletal: No Endocrine: Yes Hypothyroidsim HEENT: No Cancer: No Psychosocial: Yes Bipolar, Depression Integumentary: No Physical Exam Vital Signs Vital Signs - First Documented 11/24/20 17:00 Temp 37.0 Pulse 111 Resp 16 B/P (MAP) 129/90 (103) Pulse Ox 92 O2 Delivery Room Air Capillary Refill : Height, Weight, BMI Height: '" Weight: lbs. oz. kg; 25.00 BMI Method: General Appearance: WD/WN, no apparent distress HEENT: PERRL/EOMI, other (Bruising to the left zygomatic region) Neck: non-tender, full range of motion Respiratory: no respiratory distress, no accessory muscle use Gastrointestinal: normal bowel sounds, non tender, soft Neurologic/Psychiatric: alert, normal mood/affect, oriented x 3 Skin: normal color, warm/dry Progress/Results/Core Measures Results/Orders My Orders Orders - LINDA DAHL APRN Ct Head/Cervical Spine Wo (11/24/20 17:04) Pelvis (11/24/20 17:04) Vital Signs/I&O 11/24/20 17:00 Temp 37.0 Pulse 111 Resp 16 B/P (MAP) 129/90 (103) Pulse Ox 92 O2 Delivery Room Air Departure Impression Primary Impression: Facial contusion Disposition: 01 HOME, SELF-CARE Condition: Stable Departure-Patient Inst. Decision time for Depature: 18:03 Referrals: CARLENE ROGERS DO (PCP/Family) Primary Care Physician Patient Instructions: Contusion (DC) LINDA DAHL APRN Nov 24, 2020 17:09
--- NOTE | 2020-11-24 17:53 | Diagnostic Imaging Report ---
INDICATION: Pelvic pain, unwitnessed fall. AP view pelvis shows no displaced fracture. There is no dislocation. There are degenerative changes of both hips with joint space narrowing. IMPRESSION: Bilateral hip osteoarthritis. Dictated by: Dictated on workstation # [id number]
--- NOTE | 2020-11-24 17:59 | Diagnostic Imaging Report ---
PROCEDURE: CT head and CT cervical spine without contrast. TECHNIQUE: Multiple contiguous axial images were obtained through the brain and cervical spine without the use of intravenous contrast. Sagittal and coronal reformations through the cervical spine were then performed. Auto Exposure Controls were utilized during the CT exam to meet ALARA standards for radiation dose reduction. INDICATION: Unwitnessed fall. CT HEAD: The ventricles are normal in size, shape and position. There are no masses or hemorrhages. There are no extra-axial fluid collections. There is mild generalized atrophy. IMPRESSION: Senescent changes of the brain. No acute abnormality seen CT CERVICAL SPINE: Vertebral body heights and alignment appear normal. There is slight narrowing of the disc spaces, C5-C6 and C6-C7. There are some degenerative changes of the uncovertebral joints at C3-C4, C4-C5 and C5-C6. There is no fracture or prevertebral soft tissue swelling. IMPRESSION: Degenerative changes of the cervical spine. No acute abnormality seen. Dictated by: Dictated on workstation # [id number]
[2020-11-24 19:23] VITALS: BP 124/87
== END 2020-11-24 19:23 | disposition home or self-care (01) ==
LOC: EDUNIT# 16:54 → ER 16:57
DX: S00.83XA Contusion of other part of head, initial encounter (principal); F31.9 Bipolar disorder, unspecified; I11.0 Hypertensive heart disease with heart failure; I50.9 Heart failure, unspecified; I48.91 Unspecified atrial fibrillation; E03.9 Hypothyroidism, unspecified; Z79.890 Hormone replacement therapy; Z79.01 Long term (current) use of anticoagulants; W05.0XXA Fall from non-moving wheelchair, initial encounter
CPT/HCPCS: 70450; 72125; 72170

== ENCOUNTER 2020-12-13 17:20 | Emergency (ER) | payer MEDICARE ==
[~2020-12-13] VITALS: Ht 165 cm; Wt 68.0 kg
[2020-12-13 18:11] LABS: BASOPHILS # (AUTO) 0.1 10^3/uL (0.0-0.1); BASOPHILS % (AUTO) 1 % (0-10); EOSINOPHILS # (AUTO) 0.5 10^3/uL (0.0-0.3); EOSINOPHILS % (AUTO) 7 % (0-10); HEMATOCRIT 43 % (35-52); HEMOGLOBIN 13.7 g/dL (11.5-16.0); LYMPHOCYTES % (AUTO) 28 % (12-44); MEAN CORPUSCULAR HEMOGLOBIN 31 pg (25-34); MEAN CORPUSCULAR HGB CONC 32 g/dL (32-36); MEAN CORPUSCULAR VOLUME 98 fL (80-99); MEAN PLATELET VOLUME 10.8 fL (9.0-12.2); MONOCYTES # (AUTO) 1.3 10^3/uL (0.0-1.0); MONOCYTES % (AUTO) 19 % (0-12); NEUTROPHILS # (AUTO) 3.3 10^3/uL (1.8-7.8); NEUTROPHILS % (AUTO) 46 % (42-75); PLATELET COUNT 192 10^3/uL (130-400); WHITE BLOOD COUNT 7.2 10^3/uL (4.3-11.0)
[2020-12-13] MEDS ORDERED: NS IV 500 ML 500 ML IV SCH (18:15)
[2020-12-13 18:20] LABS: ALBUMIN 3.8 GM/DL (3.2-4.5)
--- NOTE | 2020-12-13 18:20 | ED Cough/URI ---
General Chief Complaint: Respiratory Problems Stated Complaint: IRREGULAR LABS Nursing Triage Note: ARRIVED VIA WC FROM [facility] AFTER HAVING A ABNORMAL OUTPT LAB AND X-RAY. PT STATES SHE IS FINE. Sepsis Screen: No Definite Risk Source: alf records Exam Limitations: no limitations History of Present Illness Date Seen by Provider: Dec 13, 2020 Time Seen by Provider: 17:23 Initial Comments To ER from [facility] with reports that a left lower lobe infiltrate was seen on outpatient x-ray. She has had a cough. She has had both Covid vaccines and had Covid several months ago. No fevers or chills. She is not eating well. Timing/Duration: constant Severity/Quality: moderate Associated Symptoms: cough Allergies and Home Medications Allergies Coded Allergies: No Known Drug Allergies (Unverified , 09/22/19) Home Medications Acetaminophen 325 Mg Tablet, 650 MG PO Q4H PRN for PAIN-MILD (1-4) OR TEMPATURE, (Reported) TAKES 2 (325MG) TABLETS Bisacodyl 10 Mg Supp.rect, 10 MG RC DAILY PRN for CONSTIPATION-4TH LINE, (Reported) Carvedilol 25 Mg Tablet, 25 MG PO BID, (Reported) HOLD FOR BP < 100/60 AND PULSE <60 Diclofenac Sodium 100 Gm Gel..gram., 4 GM TOP BID, (Reported) APPLY TO BILAT KNEES Docusate Sodium 100 Mg Capsule, 100 MG PO DAILY, (Reported) Lactulose 20 Gm/30 Ml Solution, 30 ML PO BID, (Reported) Levothyroxine Sodium 25 Mcg Tablet, 25 MCG PO DAILY, (Reported) Lisinopril 5 Mg Tablet, 5 MG PO DAILY, (Reported) HOLD FOR BP <100/60 AND PULSE <60 Loratadine 10 Mg Tablet, 10 MG PO DAILY, (Reported) Magnesium Hydroxide 400 Mg/5 Ml Oral.susp, 30 ML PO DAILY PRN for CONSTIPATION- 7TH LINE, (Reported) Meloxicam 15 Mg Tablet, 15 MG PO DAILY, (Reported) Mirtazapine 7.5 Mg Tablet, 7.5 MG PO HS, (Reported) Polyethylene Glycol 3350 17 Gm Powd.pack, 17 GM PO DAILY, (Reported) Risperidone 0.5 Mg Tablet, 0.5 MG PO TID, (Reported) Sertraline HCl 50 Mg Tablet, 50 MG PO DAILY, (Reported) Tramadol HCl 50 Mg Tablet, 50 MG PO TID, (Reported) Warfarin Sodium 5 Mg Tablet, 5 MG PO 1800, (Reported) Patient Home Medication List Home Medication List Reviewed: Yes Review of Systems Review of Systems Constitutional: see HPI EENTM: see HPI Respiratory: see HPI, cough Cardiovascular: no symptoms reported Genitourinary: no symptoms reported Musculoskeletal: no symptoms reported Skin: no symptoms reported Psychiatric/Neurological: No Symptoms Reported Hematologic/Lymphatic: No Symptoms Reported Immunological/Allergic: no symptoms reported Past Iiqonad-Kxnqiu-Zcspdl Hx Patient Social History 2nd Hand Smoke Exposure: No Recent Infectious Disease Expo: No Recent Hopitalizations: No Immunizations Up To Date Date of Influenza Vaccine: Aug 08, 2019 Seasonal Allergies Seasonal Allergies: No Past Medical History Respiratory: No Cardiac: Yes (CHF) Atrial Fibrillation, Hypertension Neurological: Yes Dementia Genitourinary: No Gastrointestinal: Yes Chronic Constipation Musculoskeletal: No Endocrine: Yes Hypothyroidsim HEENT: No Cancer: No Psychosocial: Yes Bipolar, Depression Integumentary: No Physical Exam Vital Signs - First Documented 12/13/20 17:46 Temp 36.7 Pulse 69 Resp 16 B/P (MAP) 149/68 (95) Pulse Ox 94 O2 Delivery Room Air Capillary Refill : Less Than 3 Seconds Height: '" Weight: lbs. oz. kg; 24.00 BMI Method: General Appearance: WD/WN, no apparent distress Neck: non-tender, full range of motion Respiratory: no respiratory distress, no accessory muscle use, crackles (in bases) Cardiovascular: regular rate, rhythm, no murmur Gastrointestinal: normal bowel sounds, soft Neurologic/Psychiatric: alert, normal mood/affect Skin: normal color, warm/dry Focused Exam Lactate Level 12/13/20 17:55: Lactic Acid Level 1.14 Lactic Acid Level Laboratory Tests Test 12/13/20 17:55 Lactic Acid Level 1.14 MMOL/L (0.50-2.00) Progress/Results/Core Measures Suspected Sepsis Recent Fever Within 48 Hours: No Infection Criteria Present: Suspected New Infection New/Unexplained Altered Menta: No Sepsis Screen: No Definite Risk SIRS Temperature: Pulse: 69 Respiratory Rate: 16 Laboratory Tests 12/13/20 17:55: White Blood Count 7.2 Blood Pressure 149 /68 Mean: 95 12/13/20 17:55: Lactic Acid Level 1.14 Laboratory Tests 12/13/20 17:55: Creatinine 0.99, INR Comment 2.0H, Platelet Count 192, Total Bilirubin 0.4 Results/Orders Lab Results Laboratory Tests Test 12/13/20 17:55 Range/Units White Blood Count 7.2 4.3-11.0 10^3/uL Red Blood Count 4.45 3.80-5.11 10^6/uL Hemoglobin 13.7 11.5-16.0 g/dL Hematocrit 43 35-52 % Mean Corpuscular Volume 98 80-99 fL Mean Corpuscular Hemoglobin 31 25-34 pg Mean Corpuscular Hemoglobin Concent 32 32-36 g/dL Red Cell Distribution Width 12.5 10.0-14.5 % Platelet Count 192 130-400 10^3/uL Mean Platelet Volume 10.8 9.0-12.2 fL Immature Granulocyte % (Auto) 0 % Neutrophils (%) (Auto) 46 42-75 % Lymphocytes (%) (Auto) 28 12-44 % Monocytes (%) (Auto) 19 H 0-12 % Eosinophils (%) (Auto) 7 0-10 % Basophils (%) (Auto) 1 0-10 % Neutrophils # (Auto) 3.3 1.8-7.8 10^3/uL Lymphocytes # (Auto) 2.0 1.0-4.0 10^3/uL Monocytes # (Auto) 1.3 H 0.0-1.0 10^3/uL Eosinophils # (Auto) 0.5 H 0.0-0.3 10^3/uL Basophils # (Auto) 0.1 0.0-0.1 10^3/uL Immature Granulocyte # (Auto) 0.0 0.0-0.1 10^3/uL Neutrophils % (Manual) 39 % Lymphocytes % (Manual) 25 % Monocytes % (Manual) 18 % Eosinophils % (Manual) 8 % Basophils % (Manual) 0 % Band Neutrophils 0 % Reactive Lymphocytes 10 % Blood Morphology Comment NORMAL Prothrombin Time 23.1 H 12.2-14.7 SEC INR Comment 2.0 H 0.8-1.4 Sodium Level 143 135-145 MMOL/L Potassium Level 4.0 3.6-5.0 MMOL/L Chloride Level 106 98-107 MMOL/L Carbon Dioxide Level 25 21-32 MMOL/L Anion Gap 12 5-14 MMOL/L Blood Urea Nitrogen 27 H 7-18 MG/DL Creatinine 0.99 0.60-1.30 MG/DL Estimat Glomerular Filtration Rate 53 BUN/Creatinine Ratio 27 Glucose Level 83 70-105 MG/DL Lactic Acid Level 1.14 0.50-2.00 MMOL/L Calcium Level 9.3 8.5-10.1 MG/DL Corrected Calcium 9.5 8.5-10.1 MG/DL Total Bilirubin 0.4 0.1-1.0 MG/DL Aspartate Amino Transf (AST/SGOT) 14 5-34 U/L Alanine Aminotransferase (ALT/SGPT) 11 0-55 U/L Alkaline Phosphatase 49 40-136 U/L Total Protein 7.2 6.4-8.2 GM/DL Albumin 3.8 3.2-4.5 GM/DL Procalcitonin 0.06 <0.10 NG/ML My Orders Orders - LINDA DAHL APRN Blood Culture (12/13/20 17:32) Cbc With Automated Diff (12/13/20 17:32) Comprehensive Metabolic Panel (12/13/20 17:32) Procalcitonin (Pct) (12/13/20 17:32) Ed Iv/Invasive Line Start (12/13/20 17:32) Lactic Acid Analyzer (12/13/20 17:32) Chest Pa/Lat (2 View) (12/13/20 18:02) Ns Iv 500 Ml (Sodium Chloride 0.9%) (12/13/20 18:15) Manual Differential (12/13/20 17:55) Protime With Inr (12/13/20 18:20) Ns Iv 1000 Ml (Sodium Chloride 0.9%) (12/13/20 18:30) Ua Culture If Indicated (12/13/20 18:45) Vital Signs/I&O 12/13/20 17:46 Temp 36.7 Pulse 69 Resp 16 B/P (MAP) 149/68 (95) Pulse Ox 94 O2 Delivery Room Air Capillary Refill : Less Than 3 Seconds Blood Pressure Mean: 95 Departure Impression Primary Impression: General medical exam Disposition: 01 HOME, SELF-CARE Condition: Stable Departure-Patient Inst. Decision time for Depature: 18:53 Referrals: CARLENE ROGERS DO (PCP/Family) Primary Care Physician Patient Instructions: General (DC) Add. Discharge Instructions: All discharge instructions reviewed with patient and/or family. Voiced understanding. LINDA DAHL APRN Dec 13, 2020 18:20
[2020-12-13 18:21] LABS: CALCIUM 9.3 MG/DL (8.5-10.1)
[2020-12-13 18:23] LABS: TOTAL PROTEIN 7.2 GM/DL (6.4-8.2)
[2020-12-13 18:24] LABS: BILIRUBIN,TOTAL 0.4 MG/DL (0.1-1.0)
[2020-12-13 18:26] LABS: CREATININE SERUM 0.99 MG/DL (0.60-1.30)
[2020-12-13 18:27] LABS: BAND NEUTROPHILS 0 %; BASOPHILS % (MANUAL) 0 %; EOSINOPHILS % (MANUAL) 8 %; LYMPHOCYTES % (MANUAL) 25 %; MONOCYTES % (MANUAL) 18 %; NEUTROPHILS % (MANUAL) 39 %; RBC MORPH NORMAL; REACTIVE LYMPHOCYTES 10 %
--- NOTE | 2020-12-13 18:28 | Diagnostic Imaging Report ---
CHEST PA/LAT (2 VIEW) Indication: Pneumonia Comparison: Chest radiograph of 09/28/[address] chest of 09/24/2019 Findings: No pulmonary mass or consolidation. No pleural effusion or pneumothorax. Unchanged cardiomegaly. 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 Impression: No consolidation that would suggest pneumonia. Dictated by: Dictated on workstation # [id number]
[2020-12-13] MEDS ORDERED: NS IV 1000 ML 1,000 ML IV SCH (18:30)
[2020-12-13 18:33] LABS: PROTHROMBIN TIME PATIENT 23.1 SEC (12.2-14.7)
[2020-12-13 19:59] VITALS: BP 127/79
== END 2020-12-13 19:52 | disposition home or self-care (01) ==
LOC: EDUNIT# 17:20 → ER 17:21
DX: Z00.01 Encounter for general adult medical examination with abnormal findings (principal); R05 Cough; I11.0 Hypertensive heart disease with heart failure; I50.9 Heart failure, unspecified; I48.91 Unspecified atrial fibrillation; E03.9 Hypothyroidism, unspecified; F03.90 Unspecified dementia, unspecified severity, without behavioral disturbance, psychotic disturbance, mood disturbance, and anxiety; F31.9 Bipolar disorder, unspecified; K59.09 Other constipation; Z86.16 Personal history of COVID-19; Z79.01 Long term (current) use of anticoagulants; Z79.890 Hormone replacement therapy
CPT/HCPCS: 36415; 71046; 80053; 83605; 84145; 85007; 85027; 85610; 87040

== ENCOUNTER → 2020-12-24 | Outpatient (CLI) | payer MEDICARE ==
[2020-12-24 19:41] LABS: BILIRUBIN,URINE NEGATIVE (NEGATIVE); CLARITY,URINE CLOUDY; COLOR,URINE YELLOW; GLUCOSE, URINE (UA) NEGATIVE (NEGATIVE); KETONES,URINE NEGATIVE (NEGATIVE); LEUKOCYTE ESTERASE ,URINE TRACE (NEGATIVE); NITRITE,URINE NEGATIVE (NEGATIVE); PROTEIN,URINE NEGATIVE (NEGATIVE)
[2020-12-24 19:48] LABS: BACTERIA,URINE FEW /HPF
[2020-12-24 19:49] LABS: AMORPHOUS SEDIMENT,UR MOD AMOR PHOSPHATE /LPF
== END ==
PROVIDERS: ATTEND Family Medicine
DX: N39.0 Urinary tract infection, site not specified (principal)
CPT/HCPCS: 81000; 87088

== ENCOUNTER 2021-03-19 18:06 | Emergency (ER) | payer MEDICARE ==
[~2021-03-19] VITALS: Ht 167 cm; Wt 55.7 kg
[~2021-03-19 18:06] MED LIST changes: +DICL100G13 TOP; -DICL100G31 TOP
--- NOTE | 2021-03-19 18:24 | ED General ---
General Chief Complaint: General Problems/Pain Stated Complaint: ABNORMAL LABS Nursing Triage Note: PT PT ED FROM [facility] FOR ABNORMAL INR LEVEL Nursing Sepsis Screen: No Definite Risk Source of Information: Patient Exam Limitations: No Limitations History of Present Illness Date Seen by Provider: Mar 19, 2021 Time Seen by Provider: 18:22 Initial Comments To ER by private vehicle from [facility] with reports of abnormal labs. Specifically this was reportedly an elevated INR at 10 which was drawn today and reported this afternoon. No evidence of bleeding. On warfarin for a-fib. Timing/Duration: 1-2 Days Severity: Moderate Associated Systoms: Denies Symptoms Allergies and Home Medications Allergies Coded Allergies: No Known Drug Allergies (Unverified , 09/22/19) Home Medications Acetaminophen 325 Mg Tablet, 650 MG PO Q4H PRN for PAIN-MILD (1-4) OR TEMPATURE, (Reported) TAKES 2 (325MG) TABLETS Bisacodyl 10 Mg Supp.rect, 10 MG RC DAILY PRN for CONSTIPATION-4TH LINE, (Reported) Carvedilol 25 Mg Tablet, 25 MG PO BID, (Reported) HOLD FOR BP < 100/60 AND PULSE <60 Diclofenac Sodium 100 Gm Gel..gram., 4 GM TOP BID, (Reported) APPLY TO BILAT KNEES Docusate Sodium 100 Mg Capsule, 100 MG PO DAILY, (Reported) Lactulose 20 Gm/30 Ml Solution, 30 ML PO BID, (Reported) Levothyroxine Sodium 25 Mcg Tablet, 25 MCG PO DAILY, (Reported) Lisinopril 5 Mg Tablet, 5 MG PO DAILY, (Reported) HOLD FOR BP <100/60 AND PULSE <60 Loratadine 10 Mg Tablet, 10 MG PO DAILY, (Reported) Magnesium Hydroxide 400 Mg/5 Ml Oral.susp, 30 ML PO DAILY PRN for CONSTIPATION- 7TH LINE, (Reported) Meloxicam 15 Mg Tablet, 15 MG PO DAILY, (Reported) Mirtazapine 7.5 Mg Tablet, 7.5 MG PO HS, (Reported) Polyethylene Glycol 3350 17 Gm Powd.pack, 17 GM PO DAILY, (Reported) Risperidone 0.5 Mg Tablet, 0.5 MG PO TID, (Reported) Sertraline HCl 50 Mg Tablet, 50 MG PO DAILY, (Reported) Tramadol HCl 50 Mg Tablet, 50 MG PO TID, (Reported) Warfarin Sodium 5 Mg Tablet, 5 MG PO 1800, (Reported) Patient Home Medication List Home Medication List Reviewed: Yes Review of Systems Review of Systems Constitutional: see HPI EENTM: see HPI Respiratory: no symptoms reported Cardiovascular: no symptoms reported Genitourinary: no symptoms reported Musculoskeletal: no symptoms reported Skin: no symptoms reported Psychiatric/Neurological: No Symptoms Reported Hematologic/Lymphatic: No Symptoms Reported Past Txqtdqb-Cjncmk-Puffpf Hx Patient Social History Alcohol Use: Denies Use Smoking Status: Never a Smoker 2nd Hand Smoke Exposure: No Recent Infectious Disease Expo: No Recent Hopitalizations: No Immunizations Up To Date Date of Influenza Vaccine: Aug 08, 2019 Seasonal Allergies Seasonal Allergies: No Past Medical History Respiratory: No Cardiac: Yes (CHF) Atrial Fibrillation, Hypertension Neurological: Yes Dementia Genitourinary: No Gastrointestinal: Yes Chronic Constipation Musculoskeletal: No Endocrine: Yes Hypothyroidsim HEENT: No Cancer: No Psychosocial: Yes Bipolar, Depression Integumentary: No Physical Exam Vital Signs Vital Signs - First Documented 03/19/21 18:13 Temp 35.8 Pulse 90 Resp 18 B/P (MAP) 96/58 (71) Pulse Ox 93 Capillary Refill : Less Than 3 Seconds Height, Weight, BMI Height: '" Weight: lbs. oz. kg; 19.00 BMI Method: General Appearance: No Apparent Distress, WD/WN, Thin Eyes: Bilateral Eye Normal Inspection, Bilateral Eye PERRL Neck: Full Range of Motion, Normal Inspection Respiratory: No Accessory Muscle Use, No Respiratory Distress Cardiovascular: Regular Rate, Rhythm, Normal Peripheral Pulses Gastrointestinal: Normal Bowel Sounds, Non Tender, Soft Extremity: Normal Capillary Refill, Normal Inspection Neurologic/Psychiatric: Alert, Oriented x3 Skin: Normal Color, Warm/Dry Progress/Results/Core Measures Suspected Sepsis Recent Fever Within 48 Hours: No Infection Criteria Present: None New/Unexplained Altered Menta: No Sepsis Screen: No Definite Risk SIRS Temperature: Pulse: 90 Respiratory Rate: 18 Laboratory Tests 03/19/21 18:21: White Blood Count 13.5H Blood Pressure 96 /58 Mean: 71 Laboratory Tests 03/19/21 18:21: Creatinine 1.69H, INR Comment 16.0*H, Platelet Count 205, Total Bilirubin 0.3 Results/Orders Lab Results Laboratory Tests Test 03/19/21 18:21 Range/Units White Blood Count 13.5 H 4.3-11.0 10^3/uL Red Blood Count 4.24 3.80-5.11 10^6/uL Hemoglobin 12.5 11.5-16.0 g/dL Hematocrit 41 35-52 % Mean Corpuscular Volume 96 80-99 fL Mean Corpuscular Hemoglobin 30 25-34 pg Mean Corpuscular Hemoglobin Concent 31 L 32-36 g/dL Red Cell Distribution Width 14.5 10.0-14.5 % Platelet Count 205 130-400 10^3/uL Mean Platelet Volume 11.3 9.0-12.2 fL Immature Granulocyte % (Auto) 0 % Neutrophils (%) (Auto) 74 42-75 % Lymphocytes (%) (Auto) 16 12-44 % Monocytes (%) (Auto) 8 0-12 % Eosinophils (%) (Auto) 2 0-10 % Basophils (%) (Auto) 0 0-10 % Neutrophils # (Auto) 9.9 H 1.8-7.8 X 10^3 Lymphocytes # (Auto) 2.2 1.0-4.0 X 10^3 Monocytes # (Auto) 1.0 0.0-1.0 X 10^3 Eosinophils # (Auto) 0.3 0.0-0.3 10^3/uL Basophils # (Auto) 0.0 0.0-0.1 10^3/uL Immature Granulocyte # (Auto) 0.1 0.0-0.1 10^3/uL Prothrombin Time 113.0 *H 12.2-14.7 SEC INR Comment 16.0 *H 0.8-1.4 Sodium Level 148 H 135-145 MMOL/L Potassium Level 4.0 3.6-5.0 MMOL/L Chloride Level 113 H 98-107 MMOL/L Carbon Dioxide Level 23 21-32 MMOL/L Anion Gap 12 5-14 MMOL/L Blood Urea Nitrogen 62 H 7-18 MG/DL Creatinine 1.69 H 0.60-1.30 MG/DL Estimat Glomerular Filtration Rate 29 BUN/Creatinine Ratio 37 Glucose Level 169 H 70-105 MG/DL Calcium Level 9.0 8.5-10.1 MG/DL Corrected Calcium 9.9 8.5-10.1 MG/DL Total Bilirubin 0.3 0.1-1.0 MG/DL Aspartate Amino Transf (AST/SGOT) 17 5-34 U/L Alanine Aminotransferase (ALT/SGPT) 10 0-55 U/L Alkaline Phosphatase 47 40-136 U/L Total Protein 7.2 6.4-8.2 GM/DL Albumin 2.9 L 3.2-4.5 GM/DL My Orders Orders - LINDA DAHL APRN Protime With Inr (03/19/21 18:22) Cbc With Automated Diff (03/19/21 18:22) Comprehensive Metabolic Panel (03/19/21 18:22) Ed Iv/Invasive Line Start (03/19/21 18:22) Lactated Ringers (Lr 1000 Ml Iv Solution (03/19/21 19:00) Phytonadione (Adult) Injection (Aquameph (03/19/21 19:30) Medications Given in ED Current Medications Medications Dose Ordered Sig/Heladio Route Start Time Stop Time Status Last Admin Dose Admin Phytonadione 10 mg/Sodium Chloride 51 ml @ 153 mls/hr ONCE ONCE IV 03/19/21 19:30 03/19/21 19:49 03/19/21 19:41 153 MLS/HR Vital Signs/I&O 03/19/21 18:13 Temp 35.8 Pulse 90 Resp 18 B/P (MAP) 96/58 (71) Pulse Ox 93 Capillary Refill : Less Than 3 Seconds Blood Pressure Mean: 71 Departure Communication (Admissions) No bleeding here, a little hypotensive with map of 60-65. LR ordered x1 liter. INR 16-->vitamin K 10mg IV ordered. Will hold warfarin and dc back to snf for repeat INR in 48 hours. Impression Primary Impression: LESLEE (acute kidney injury) Additional Impression: Supratherapeutic INR Disposition: 01 HOME, SELF-CARE Condition: Stable Departure-Patient Inst. Decision time for Depature: 19:35 Referrals: CARLENE ROGERS DO (PCP/Family) Primary Care Physician Patient Instructions: What to Do When Your INR Is Too High Add. Discharge Instructions: 1. Rose was given 10mg of Vitamin K tonight + 1 liter of lactated ringers. She should hold her warfarin and have an INR in [address] Rogers for further recommendations tomorrow. All discharge instructions reviewed with patient and/or family. Voiced understanding. Copy Copies To 1: CARLENE ROGERS PETER J APRN Mar 19, 2021 18:24
[2021-03-19 18:33] LABS: BASOPHILS % (AUTO) 0 % (0-10); EOSINOPHILS # (AUTO) 0.3 10^3/uL (0.0-0.3); EOSINOPHILS % (AUTO) 2 % (0-10); HEMATOCRIT 41 % (35-52); HEMOGLOBIN 12.5 g/dL (11.5-16.0); LYMPHOCYTES # (AUTO) 2.2 X 10^3 (1.0-4.0); LYMPHOCYTES % (AUTO) 16 % (12-44); MEAN CORPUSCULAR HEMOGLOBIN 30 pg (25-34); MEAN CORPUSCULAR HGB CONC 31 g/dL (32-36); MEAN CORPUSCULAR VOLUME 96 fL (80-99); MEAN PLATELET VOLUME 11.3 fL (9.0-12.2); MONOCYTES % (AUTO) 8 % (0-12); NEUTROPHILS # (AUTO) 9.9 X 10^3 (1.8-7.8); NEUTROPHILS % (AUTO) 74 % (42-75); PLATELET COUNT 205 10^3/uL (130-400); WHITE BLOOD COUNT 13.5 10^3/uL (4.3-11.0)
[2021-03-19 18:52] LABS: ALBUMIN 2.9 GM/DL (3.2-4.5); TOTAL PROTEIN 7.2 GM/DL (6.4-8.2)
[2021-03-19 18:53] LABS: CREATININE SERUM 1.69 MG/DL (0.60-1.30)
[2021-03-19 18:56] LABS: BILIRUBIN,TOTAL 0.3 MG/DL (0.1-1.0)
[2021-03-19] MEDS ORDERED: LACTATED RINGERS 1,000 ML IV SCH (19:00)
[2021-03-19] MEDS ORDERED: PHYTONADIONE (ADULT) INJECTION 10 MG in NS (IVPB) 50 ML IV ONE (19:30)
[2021-03-19 20:06] VITALS: BP 103/77
== END 2021-03-19 20:44 | disposition home or self-care (01) ==
LOC: EDUNIT# 18:06 → ER 18:07
DX: N17.9 Acute kidney failure, unspecified (principal); R79.1 Abnormal coagulation profile; I11.0 Hypertensive heart disease with heart failure; I50.9 Heart failure, unspecified; I48.91 Unspecified atrial fibrillation; F03.90 Unspecified dementia, unspecified severity, without behavioral disturbance, psychotic disturbance, mood disturbance, and anxiety; K59.09 Other constipation; E03.9 Hypothyroidism, unspecified; F31.9 Bipolar disorder, unspecified; Z79.890 Hormone replacement therapy; Z79.01 Long term (current) use of anticoagulants; Z79.899 Other long term (current) drug therapy
CPT/HCPCS: 36415; 80053; 85025; 85610